=== PATIENT | female | born 1980 | race Caucasian/White ===

== ENCOUNTER → 2022-07-19 10:03 | Outpatient (BNVA) | payer BC, SELFPAY | PROVIDERS: PCP Family Medicine; Visit Provider Family Medicine | DX: E03.9 Hypothyroidism, unspecified (principal) | CPT/HCPCS: 80053; 80061; 84443; 85025 ==

== ENCOUNTER → 2022-08-03 13:20 | Outpatient (BNVA) | payer BC, SELFPAY | PROVIDERS: PCP Family Medicine; Referring Provider Family Medicine; Visit Provider Orthopaedic Surgery | DX: M48.07 Spinal stenosis, lumbosacral region (principal); M47.814 Spondylosis without myelopathy or radiculopathy, thoracic region; M47.816 Spondylosis without myelopathy or radiculopathy, lumbar region; M54.2 Cervicalgia | CPT/HCPCS: 72050; 72110 ==

== ENCOUNTER 2022-09-19 06:00 | Outpatient (RCR) | payer BC, SELFPAY | END 2022-09-26 23:59 | disposition home or self-care (01) | LOC: MPT 06:00 | PROVIDERS: PCP Family Medicine; Visit Provider Anesthesiology Pain Medicine | DX: M54.12 Radiculopathy, cervical region (principal) | CPT/HCPCS: 97161 ==

== ENCOUNTER 2022-09-27 06:00 | Outpatient (RCR) | payer BC, SELFPAY | END 2022-10-27 23:59 | disposition home or self-care (01) | LOC: MPT 06:00 | PROVIDERS: PCP Family Medicine; Visit Provider Anesthesiology Pain Medicine | DX: M54.12 Radiculopathy, cervical region (principal) | CPT/HCPCS: 97110; 97140; G0283 ==

== ENCOUNTER 2022-11-23 10:14 | Emergency (ER) | payer BC, SELFPAY ==
[2022-11-23 10:36] VITALS: BP 75/62; PULSE 81; RESP 16; TEMP 36; O2SAT 97; BMI 33.3
[2022-11-23 10:45] LABS: Glucose Point of Care 81 mg/dL (70-110)
--- NOTE | 2022-11-23 10:50 | ECG_ITS ---
[facility] Test Date: 2022-11-23 Pat Name: Gale Meredith Department: Room: Gender: Female Aco Coordinator: : 1980 Requested By: Ken Valderrama Order Number: [id number] Kevon MD: Micky Dumont M.D. Measurements Intervals [place] Rate: 61 P: 50 MA: 181 QRS: 52 QRSD: 96 T: 56 QT: 408 QTc: 411 Interpretive Statements SINUS RHYTHM No previous ECG available for comparison Electronically Signed On 11-23-2022 16:14:42 CDT by Micky Dumont M.D. [id number]
[2022-11-23 11:02] LABS: Basophils # 0.1 10^3/uL (0.0-0.1); Basophils % 0.4 %; Eosinophils % 0.3 %; Hematocrit 43.4 % (37.0-47.0); Hemoglobin 14.1 g/dL (11.5-15.3); Lymphocytes # 2.1 10^3/uL (0.8-4.8); Lymphocytes % 17.8 %; Mean Corpuscular HGB Conc 32.5 g/dL (30.0-36.0); Mean Corpuscular Hemoglobin 28.1 pg (28.0-34.0); Mean Corpuscular Volume 86.6 fl (81-99); Mean Platelet Volume 10.9 fL (7.4-10.4); Monocytes # 0.7 10^3/uL (0.2-0.9); Monocytes % 6.3 %; Neutrophils # 8.63 10^3/uL (1.8-7.7); Neutrophils % 74.9 %; Nucleated Red Blood Cells % 0 %; Platelet Count 232 10^3/cmm (130-400); Red Blood Count 5.01 10^6/uL (4.1-5.3); Red Cell Distribution Width 12.2 % (12.1-15.1); White Blood Count 11.5 10^3/uL (4.0-10.0)
[2022-11-23] MEDS: promethazine 25 mg/mL SDV 1 mL IM (11:05)
[2022-11-23] MEDS: ketorolac 30 mg/mL INJ IVP ×2 (11:05→13:57)
[2022-11-23] MEDS: sodium chloride 0.9% 1,000 ML 999 ML IV (11:05)
[2022-11-23] MEDS: valproic acid inj 500 MG in sodium chloride 0.9% 50 ML 55 MG IV ×2 (11:12→13:56)
[2022-11-23 11:17] LABS: Alanine Aminotransferase 7 U/L (0-33); Albumin Level 4.3 g/dL (3.5-5.2); Alkaline Phosphatase 44 U/L (35-105); Anion Gap 15.1 (5-19); Aspartate Amino Transferase 9 U/L (0-32); Blood Urea Nitrogen 11 mg/dL (6-20); Calcium 9.3 mg/dL (8.5-10.5); Carbon Dioxide 26 mmol/L (22-29); Chloride 101 mmol/L (98-107); Globulin 2.9 g/dL (1.3-4.6); Glomerular Filtration Rate 68.3 mL/min (90-130); Glucose 80 mg/dL (65-115); Osmolality Calculated 284 mOsm/kg (285-295); Potassium 4.1 mmol/L (3.5-5.1); Sodium 138 mmol/L (136-145); Total Bilirubin 1.5 mg/dL (0.15-1.2); Total Protein 7.2 g/dL (6.6-8.7)
--- NOTE | 2022-11-23 11:34 | ED_ITS ---
HPI - Headache General: Chief Complaint: Headache Stated Complaint: headache, dizziness, ear ringing Time Seen by Provider: 11/23/22 10:45 Source: patient Mode of arrival: wheelchair History of Present Illness: 42-year-old female presents emergency room complaint of headache for the last 4 to 5 days. She is taken some [id number] medications including Nurtec without any relief of symptoms. She is mildly hypotensive initially in triage but improved on her arrival in the room she denies any fever sweats or chills. She has had some falls recently. MD elicited complaint: migraine Onset (ago): day(s) Onset description: gradually Location: frontal Severity: moderate Quality & Timing: throbbing Exacerbating factors: light and noise Relieving factors: rest Associated symptoms: Reports photophobia; Deny chest pain, confusion, cough, diaphoresis, eye pain, eye redness, fever(s), lightheadedness, loss of vision, malaise, nausea, neck stiffness, numbness, paresthesias, pre-syncope, rash, seizures, short of breath, sound sensitivity, syncope, vomiting or weakness Treatments prior to arrival: none Review of Systems Const: Denies: fever(s), chills, fatigue, malaise or diaphoresis ENMT: Denies: throat pain, ear or mastoid pain, nasal discharge or nasal congestion Card: Denies: chest pain, lightheadedness, syncope or pre-syncope Resp: Denies: dyspnea, productive cough or non-productive cough GI: Denies: abdominal pain, nausea or vomiting : Denies: flank pain, difficulty voiding, dysuria, urinary frequency or urinary urgency Skin/Breast: Denies: rash Neuro: Denies: confusion PFSH ED PFSH: Medical History Chronic migraine with aura Hypothyroidism Migraine headache with aura Raynaud's disease Surgical History History of appendectomy 1990 History of back surgery 2008, L5 herniated disc repair Hx of spinal surgery Family History Mother Cancer kidney Anesthesia complication high tolerance Grandfather Cancer Maternal--lung CAD (coronary artery disease) Grandfather No problems noted. Grandmother Cancer Maternal--kidney Father Menieres disease Denies family history of Diabetes Clotting disorder Dementia Hyperlipidemia Psychiatric illness Chronic kidney disease (CKD) Bleeding disorder Lung disease Hypertension Stroke Social History Substance/Drug Use: never Female Reproductive History: Para: 2 Physical Exam Const: GENERAL APPEARANCE: cooperative and comfortable ORIENTATION/CONSCIOUSNESS: Yes awake, Yes oriented to person, Yes oriented to place and Yes oriented to time HENMT: COMMON NORMALS: normocephalic, atraumatic and hearing grossly normal bilaterally HEAD & SCALP: normocephalic and atraumatic Eye: DIRECT OPHTHALMOSCOPY: Yes photophobia Resp: COMMON NORMALS: normal respiratory effort, No retractions, No use of accessory muscles and clear to auscultation bilaterally AUSCULTATION: clear to auscultation bilaterally Cardio: COMMON NORMALS: regular rate, regular rhythm and No murmurs present (Cardio) RATE: regular rate RHYTHM: regular rhythm GI: COMMON NORMALS: Soft to palpation and No hepatosplenomegaly present AUSCULTATION: Yes normoactive bowel sounds PALPATION: Yes Soft to palpation, No Tenderness to palpation present (GI), No Guarding due to palpation present (GI) and Yes No hepatosplenomegaly present Extremity: COMMON NORMALS: normal to inspection, capillary refill normal, no clubbing, cyanosis or edema, no calf tenderness and no pedal edema Neuro: SENSORIUM/ORIENTATION: Yes oriented to person, Yes oriented to place and Yes oriented to time Skin: COMMON NORMALS: no rashes or lesions noted GENERAL SKIN EXAM: no rashes or lesions noted Course Vital Signs: Vital signs: Vital Signs Temperature 96.7 F L 11/23/22 14:56 Pulse Rate 72 11/23/22 14:56 Respiratory Rate 16 11/23/22 14:56 Blood Pressure 100/70 11/23/22 14:56 Pulse Oximetry 94 11/23/22 14:56 Oxygen Delivery Me thod Room Air 11/23/22 14:56 MDM - Headache Medical Decision Making Headache improved slightly with medications Septocaine x2 as well as IV fluids ketorolac and promethazine. Will discharge home continue regular home medication rescue therapies follow-up with primary care. Lab Data 11/23/22 10:50 11/23/22 10:[address] 11/23/22 11:35 IMPRESSION: 1. No evidence of intracranial hemorrhage or mass effect 2. No acute intracranial findings. Laboratory Results WBC 11.5 10^3/uL (4.0-10.0) H 11/23/22 10:50 RBC 5.01 10^6/uL (4.1-5.3) 11/23/22 10:50 Hgb 14.1 g/dL (11.5-15.3) 11/23/22 10:50 Hct 43.4 % (37.0-47.0) 11/23/22 10:50 MCV 86.6 fl (81-99) 11/23/22 10:50 MCH 28.1 pg (28.0-34.0) 11/23/22 10:50 MCHC 32.5 g/dL (30.0-36.0) 11/23/22 10:50 RDW 12.2 % (12.1-15.1) 11/23/22 10:50 Plt Count 232 10^3/cmm (130-400) 11/23/22 10:50 MPV 10.9 fL (7.4-10.4) H 11/23/22 10:50 Neut % (Auto) 74.9 % 11/23/22 10:50 Lymph % (Auto) 17.8 % 11/23/22 10:50 Mills % (Auto) 6.3 % 11/23/22 10:50 Eos % (Auto) 0.3 % 11/23/22 10:50 Baso % (Auto) 0.4 % 11/23/22 10:50 Neut # (Auto) 8.63 10^3/uL (1.8-7.7) H 11/23/22 10:50 Lymph # (Auto) 2.1 10^3/uL (0.8-4.8) 11/23/22 10:50 Mills # (Auto) 0.7 10^3/uL (0.2-0.9) 11/23/22 10:50 Eos # (Auto) 0.0 10^3/uL (0.0-0.8) 11/23/22 10:50 Baso # (Auto) 0.1 10^3/uL (0.0-0.1) 11/23/22 10:50 Nucleated RBC % (auto) 0 % 11/23/22 10:50 Nucleated RBCs # 0.0 /100WBC 11/23/22 10:50 Sodium 138 mmol/L (136-145) 11/23/22 10:50 Potassium 4.1 mmol/L (3.5-5.1) 11/23/22 10:50 Chloride 101 mmol/L (98-107) 11/23/22 10:50 Carbon Dioxide 26 mmol/L (22-29) 11/23/22 10:50 Anion Gap 15.1 (5-19) 11/23/22 10:50 BUN 11 mg/dL (6-20) 11/23/22 10:50 Creatinine 0.9 mg/dL (0.5-0.9) 11/23/22 10:50 GFR Calculation 68.3 mL/min (90-130) L 11/23/22 10:50 Glucose 80 mg/dL (65-115) 11/23/22 10:50 POC Glucose 81 mg/dL (70-110) 11/23/22 10:41 Calculated Osmolality 284 mOsm/kg (285-295) L 11/23/22 10:50 Calcium 9.3 mg/dL (8.5-10.5) 11/23/22 10:50 Total Bilirubin 1.5 mg/dL (0.15-1.2) H 11/23/22 10:50 AST 9 U/L (0-32) 11/23/22 10:50 ALT 7 U/L (0-33) 11/23/22 10:50 Alkaline Phosphatase 44 U/L (35-105) 11/23/22 10:50 Creatine Kinase 31 U/L (26-192) 11/23/22 10:50 Total Protein 7.2 g/dL (6.6-8.7) 11/23/22 10:50 Albumin 4.3 g/dL (3.5-5.2) 11/23/22 10:50 Globulin 2.9 g/dL (1.3-4.6) 11/23/22 10:50 Urine Color Yellow (Yellow) 11/23/22 14:21 Urine Appearance Hazy (CLEAR) A 11/23/22 14:21 Urine pH 5 (5-7) 11/23/22 14:21 Ur Specific [place] 1.020 (1.005-1.030) 11/23/22 14:21 Urine Protein Neg (Negative) 11/23/22 14:21 Urine Glucose (UA) Norm (Normal) 11/23/22 14:21 Urine Ketones 2+ (Negative) H 11/23/22 14:21 Urine Blood Neg (Negative) 11/23/22 14:21 Urine Nitrate Negative (Negative) 11/23/22 14:21 Urine Bilirubin Neg (Negative) 11/23/22 14:21 Urine Urobilinogen Neg mg/dL (Negative) 11/23/22 14:21 Ur Leukocyte Esterase 2+ (Negative) H 11/23/22 14:21 Urine RBC 0-4 /hpf (0-2) H 11/23/22 14:21 Urine WBC 10-15 /hpf (0-5) H 11/23/22 14:21 Ur Squamous Epith Cells 10-15 /hpf (0-5) H 11/23/22 14:21 Amorphous Sediment 2+ /hpf 11/23/22 14:21 Urine Bacteria 2+ /hpf (NONE) H 11/23/22 14:21 Urine Mucus 1+ /hpf 11/23/22 14:21 Discharge Plan Discharge Patient Disposition: Home Clinical Impression: Migraine Condition: Stable Prescriptions: No Action mometasone 0.1 % solution 2 ml topical BID PRN (Reason: Rash) naloxone 4 mg/actuation spray,non-aerosol 1 spray intranasal ONCE PRN (Reason: overdose) Rx Instructions: spray 1 dose into ONE nostril; alternate nostrils w each dose until help arrives sumatriptan succinate 100 mg tablet See Rx Instructions PO .COMPLEX Rx Instructions: take 1 tab at onset of headache; if no relief, may repeat 1 tab after at least 2 hrs; max = 2 tabs/24 hrs PO venlafaxine 150 mg capsule,extended release 24hr 150 mg PO QAM Qty: 30 0RF Nurtec ODT 75 mg tablet,disintegrating 75 mg PO ONCE PRN (Reason: migraine headache) Qty: 14 0RF Mirena 20 mcg/24 hours (8 yrs) 52 mg intrauterine device 1 device intrauterine .CONTINUOUS levothyroxine 75 mcg capsule 75 mcg PO DAILY Qty: 90 2RF tizanidine 4 mg capsule See Rx Instructions .ROUTE .COMPLEX Qty: 90 1RF Dose Instruction: TAKE 1 CAPSULE EVERY 6 HOURS NEEDED FOR MUSCLE SPASTICITY Rx Instructions: TAKE 1 CAPSULE EVERY 6 HOURS NEEDED FOR MUSCLE SPASTICITY gabapentin 800 mg tablet 800 mg PO BID 30 Days Qty: 60 1RF tramadol 50 mg tablet 50 mg PO Q8H PRN (Reason: pain) Qty: 60 0RF Discharge Orders: Discharge ED (Routine); Ordered 11/23/22 Ordered By: Ken Savage Referrals: Suraj Harris MD [Primary Care Provider] - Discharge Diet: Usual diet Discharge Activity: Increase activity as tolerated Patient Instructions: Opioid Safety, Pain Management Activity Restrictions/Additional Instructions: You were seen today for headache given fluids and Depakene. Recommend you continue your current medications regiment. Follow-up with your primary care doctor. Coding Level of Care Code ED Stator Plate Washer for Betina Coronado
--- NOTE | 2022-11-23 11:35 | CT_ITS ---
WS: [id number] CT HEAD TECHNIQUE: Noncontrast CT of the head obtained from the skullbase to the vertex. CLINICAL INFORMATION: Headache frequent falls COMPARISON: None. DLP: 1021.[address] scans at [facility] use at least one of these dose optimization techniques: automated e xposure control; mA and/or kV adjustment per patient size (includes targeted exams where dose is matc hed to clinical indication); or iterative reconstruction. FINDINGS: No evidence of intracranial hemorrhage or mass effect. Ventricular system and basal cisterns are hernandez nt. No extra-axial fluid collections. No evidence of mass or mass effect. Normal pickens-white different iation. Paranasal sinuses and mastoid air cells are well aerated. .Normal visualized soft tissues. CT/CT head wo con* [id number] IMPRESSION: 1. No evidence of intracranial hemorrhage or mass effect 2. No acute intracranial findings.
[2022-11-23 12:03] LABS: Creatine Phosphokinase 31 U/L (26-192)
[2022-11-23 12:25] VITALS: BP 115/74
[2022-11-23 14:56] VITALS: BP 100/70; PULSE 72; RESP 16; TEMP 35.9; O2SAT 94
[2022-11-23 15:01] LABS: Add Urine Culture? No; Add Urine Microscopic? YES; Amorphous Sediment Urine 2+ /hpf; Bacteria Urine 2+ /hpf; Bilirubin Urine Neg (Negative); Blood Urine Neg (Negative); Glucose Urine UA Norm (Normal); Ketones Urine 2+ (Negative); Leukocyte Esterase Urine 2+ (Negative); Mucus Urine 1+ /hpf; Nitrate Urine Negative (Negative); Protein Urine Neg (Negative); RBC Urine 0-4 /hpf (0-2); Urine Appearance Hazy (CLEAR); Urine Color Yellow (Yellow); Urobilinogen Urine Neg (Negative); pH Urine 5 (5-7)
== END 2022-11-23 15:18 | disposition home or self-care (01) ==
PROVIDERS: Emergency Provider Family Medicine; PCP Family Medicine
DX: G43.909 Migraine, unspecified, not intractable, without status migrainosus (principal)
CPT/HCPCS: 36415; 36416; 70450; 80053; 81001; 82550; 82962; 85025; 93005; 96365; 96366; 96372; 96375; 96376; 99285; J1885; J2550; J3490; J7030

== ENCOUNTER → 2023-01-08 07:42 | Outpatient (BNVA) | payer BC, SELFPAY | PROVIDERS: PCP Family Medicine; Visit Provider Psychiatry & Neurology Neurology | DX: G43.109 Migraine with aura, not intractable, without status migrainosus (principal); R11.0 Nausea; R20.0 Anesthesia of skin | CPT/HCPCS: 36415; 82306; 82607; 82746; 83090; 83735; 83921 ==

== ENCOUNTER 2023-01-23 14:57 | Outpatient (CLI) | payer BC, SELFPAY ==
--- NOTE | 2023-01-23 15:15 | MR_ITS ---
WS: [id number] MRA HEAD TECHNIQUE: Axial 3-D TOF images obtained with axial images and axial, sagittal, and coronal 2-D refor matted images. CLINICAL INFORMATION: G43.109 - Migraine with aura, not intractable, without st... COMPARISON: CT head November 23, 2022 FINDINGS: Some images degraded by patient motion. Distal vertebral arteries are patent. Basilar is patent. Normal vascularity to the CYLINDER BATCHER territory bila terally. Both ICAs are patent at the skull base. Normal vascularity to the STEVE and MCA territories bi laterally. No evidence of proximal flow limiting stenosis or aneurysm. Patent anterior communicating artery. Some irregularity involving the 2nd 3rd order RIGHT MCA branches appears to be due to motion artifact. MR/MR angio head [facility] [id number] IMPRESSION: Some images degraded by patient motion Normal intracranial MRA considering motion artifact.
== END 2023-01-23 14:58 | disposition home or self-care (01) ==
PROVIDERS: PCP Family Medicine; Visit Provider Psychiatry & Neurology Neurology
DX: G43.109 Migraine with aura, not intractable, without status migrainosus (principal)
CPT/HCPCS: 36415; 70544; 82306; 82607; 82746; 83090; 83735; 83921

== ENCOUNTER 2023-02-27 10:13 | Emergency (ER) | payer BC, SELFPAY ==
--- NOTE | 2023-02-27 10:28 | XRR_ITS ---
PROCEDURE INFORMATION: Exam: XR Chest Exam date and time: 02/27/2023 10:56 AM Age: 42 years old Clinical indication: Cough and dyspnea and shortness of breath; Additional info: Dyspnea/cough TECHNIQUE: Imaging protocol: Radiologic exam of the chest. Views: 1 view. COMPARISON: CR XR cervical spine 4-5V [id number] 08/03/2022 1:23 PM FINDINGS: Lungs: Unremarkable. No consolidation. Pleural spaces: Unremarkable. No pleural effusion. No pneumothorax. Heart/Mediastinum: Unremarkable. No cardiomegaly. Bones/joints: Unremarkable. XR/XR chest 1V portable [id number] IMPRESSION: No acute findings.
[2023-02-27 10:34] VITALS: BP 138/84; PULSE 82; RESP 20; TEMP 36.8; O2SAT 99; BMI 30.7
[2023-02-27 11:05] VITALS: BP 154/127; PULSE 76; RESP 18; O2SAT 100
[2023-02-27 11:18] LABS: Basophils % 0.5 %; Eosinophils % 0.4 %; Hematocrit 42.2 % (37.0-47.0); Hemoglobin 13.7 g/dL (11.5-15.3); Lymphocytes % 25.9 %; Mean Corpuscular HGB Conc 32.5 g/dL (30.0-36.0); Mean Corpuscular Volume 86.3 fl (81-99); Mean Platelet Volume 10.7 fL (7.4-10.4); Monocytes # 0.4 10^3/uL (0.2-0.9); Monocytes % 4.5 %; Neutrophils # 5.31 10^3/uL (1.8-7.7); Neutrophils % 68.6 %; Nucleated Red Blood Cells % 0 %; Platelet Count 221 10^3/cmm (130-400); Red Blood Count 4.89 10^6/uL (4.1-5.3); Red Cell Distribution Width 12.7 % (12.1-15.1); White Blood Count 7.8 10^3/uL (4.0-10.0)
--- NOTE | 2023-02-27 11:31 | CT_ITS ---
WS: [id number] CT CERVICAL SPINE HISTORY: acute on chronic cervical radiculopathy TECHNIQUE: Contiguous 2.0 mm axial imaging performed through the entire cervical spine. Sagittal and coronal reformats also performed. All CT scans at [facility] use at least one of these dose o ptimization techniques: automated exposure control; mA and/or kV adjustment per patient size (include s targeted exams where dose is matched to clinical indication); or iterative reconstruction. DLP: 162.17 mGy.cm COMPARISON: None available. Mild straightening of the normal cervical lordosis. Mild disc space narrowing at C5-C6. Hypertrophic osteophytes are most significant from C4 through C6. Craniocervical junction is normal. Facet joints are normally aligned. C1 and C2 are normally aligned and the odontoid is intact. C2-C3: Small central disc protrusion. C3-C4: Normal. C4-C5: Mild osteophytic ridging greatest to the LEFT. Mild LEFT foraminal stenosis predominantly due to osteophyte. C5-C6: Mild osteophytic ridging, slightly greater to the LEFT. Osteophyte encroaches upon the LEFT la teral thecal sac with moderate narrowing of the LEFT foramen. C6-C7: Mild annular disc bulging. No stenosis. C7-T1: Normal. Bilateral cervical chain lymph nodes. Largest lymph node along the RIGHT cervical chain is 11 mm. The re is are probably reactive. CT/CT cervical spin wo con* [id number] IMPRESSION: 1. No acute cervical spine fracture. 2. C4-5: Mild LEFT foraminal stenosis due to an osteophyte. 3. C5-6: Moderate LEFT foraminal stenosis due to osteophyte. Osteophytes also contacts the LEFT lateral cervical cord.
--- NOTE | 2023-02-27 11:31 | CT_ITS ---
WS: [id number] CT LUMBAR SPINE, noncontrast. HISTORY: pain with radiculopathy TECHNIQUE: Contiguous 2.0 mm axial imaging are performed. Sagittal and coronal reformats are submitte d and reviewed. All CT scans at [facility] use at least one of these dose optimization techni ques: automated exposure control; mA and/or kV adjustment per patient size (includes targeted exams w here dose is matched to clinical indication); or iterative reconstruction. IV contrast: None DLP: 1273.03 mGy.cm COMPARISON: None available. Normal lumbar alignment. Mild disc space narrowing at L5-S1 with chronic changes along the endplates. No fractures. Facet joints are normally aligned. L1-2: Normal. L2-3: Normal. L3-4: Mild annular disc bulging with mild encroachment upon the ventral thecal sac. Mild facet arthri tis. No high-grade stenosis. L4-5: Moderate annular disc bulging encroaching upon the subarticular recesses and central canal. Mil d central and bilateral subarticular recess stenosis. L5-S1: Diffuse annular disc bulging asymmetric to the RIGHT. Osteophytic ridging and facet disease al so contributing to mild central, moderate bilateral subarticular recess and foraminal stenosis. Sligh tly greater disc and osteophyte contact on the RIGHT L5 and S1 nerve roots. Partial sacralization L5- S1 on the LEFT. IUD in the uterine canal. CT/CT lumbar spine wo con* [id number] IMPRESSION: 1. Moderate degenerative disc disease at L5-S1. No fractures. 2. Mild central stenosis at L5-S1. 3. Moderate bilateral subarticular recess and foraminal stenosis at L5-S1. Asy mmetric disc contacting the RIGHT L5 and S1 nerve roots. 4. Partial sacralization of L5-S1 on the LEFT.
--- NOTE | 2023-02-27 11:31 | CT_ITS ---
WS: [id number] CT THORACIC SPINE HISTORY: h/o back sx with pain TECHNIQUE: Contiguous 2.5 mm axial images are reviewed to thoracic spine. Images are reformatted in s agittal and coronal planes. All CT scans at [facility] use at least one of these dose optimiz ation techniques: automated exposure control; mA and/or kV adjustment per patient size (includes targ eted exams where dose is matched to clinical indication); or iterative reconstruction. DLP: 1273.03 mGy.cm COMPARISON: None available. Slight straightening of the normal thoracic kyphosis. Partially calcified disc at T10-11. Very slight anterior wedging of T12. No fractures are identified. Facet joint arthritis increasing in the midthoracic spine beginning at T7-8. Mild bilateral foraminal stenosis at T10-11 due to osteophytes. No high-grade central or foraminal stenosis. The visualized lungs and paravertebral soft tissues are normal. CT/CT thoracic spin wo con* [id number] IMPRESSION: 1. No acute thoracic spine fracture. 2. Very minimal anterior wedging of T12. 3. Mild bilateral foraminal stenosis at T10-11.
--- NOTE | 2023-02-27 11:36 | W.ED.BACK ---
HPI - Back Pain/Injury General: Chief Complaint: Shortness of Breath/Dyspnea Stated Complaint: sob, pins and needles Time Seen by Provider: 02/27/23 11:02 History of Present Illness: 42-year-old female presents to the emergency department chief complaint of having acute on chronic back pain. Patient reports acute on chronic [id number] from down her arms of the legs is been ongoing for several weeks now she does now endorse having some mid back pain causing some shortness of breath. Patient reports she has had prior back surgery she has been to multiple specialist once they are trying to get her scheduled for an MRI to get insurance to cooperate to get cleared. The patient reports no bowel or bladder issues she does endorse having couple recent falls. Patient reports she has been on several pain medication regimens no avail. The patient presents to the ER for further assessment and management. Associated symptoms: Deny abdominal pain, chills, fatigue, fever(s), nausea or vomiting Review of Systems General: Reports: 10 or more systems reviewed and unremarkable except in HPI and below Const: Denies: fever(s), chills, fatigue or malaise Eyes: Denies: change in vision or blurry vision Card: Denies: chest pain or palpitations Resp: Denies: dyspnea or productive cough GI: Denies: abdominal pain, nausea or vomiting : Denies: flank pain Musc: Reports: neck pain and back pain; Denies: extremity pain or extremity swelling Skin/Breast: Denies: rash or pruritus Neuro: Reports: weakness in extremities and frequent falls; Denies: headache(s) Psych: Denies: anxiety or depression Vish/Lymph: Denies: easy bleeding All/Imm: Denies: urticaria, throat swelling or facial swelling PFSH ED PFSH: Medical History Chronic migraine with aura Hypothyroidism Migraine headache with aura Raynaud's disease Surgical History History of appendectomy 1991 History of back surgery 2008, L5 herniated disc repair Hx of spinal surgery Family History Mother Cancer kidney Anesthesia complication high tolerance Grandfather Cancer Maternal--lung CAD (coronary artery disease) Grandfather No problems noted. 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 Female Reproductive History: Para: 2 Physical Exam Const: COMMON NORMALS: no acute distress, patient oriented x3 and healthy appearing HENMT: COMMON NORMALS: normocephalic and atraumatic HEAD & SCALP: normocephalic and atraumatic Eye: COMMON NORMALS: Equal, round and reactive pupils present and EOMs intact bilaterally PUPIL: Yes Equal, round and reactive pupils present Neck/C-Spine: COMMON NORMALS: full ROM, supple and no JVD Lymph: LYMPHATIC: no lymphadenopathy noted Chest: COMMONS NORMALS: normal inspection of the chest and normal palpation of entire chest wall Resp: COMMON NORMALS: normal respiratory effort, No retractions and clear to auscultation bilaterally EFFORT & INSPECTION: Yes able to speak in complete sentences and Yes symmetric chest movement AUSCULTATION: clear to auscultation bilaterally OTHER: Equal breath sounds appreciate bilaterally with no obvious wheezing, crackles, rales or rhonchi noted. Cardio: COMMON NORMALS: no JVD, regular rate and regular rhythm RATE: regular rate RHYTHM: regular rhythm GI: COMMON NORMALS: Normal to inspection, nondistended, normoactive bowel sounds present, Soft to palpation and non-tender INSPECTION: Yes normal to inspection PALPATION: Yes Soft to palpation : COMMON NORMALS: No no CVA tenderness BLADDER/KIDNEY EXAM: No no CVA tenderness Back/Pelvis: COMMON NORMALS: negative for no CVA tenderness and negative for no thoracic nor lumbar tenderness (Generalized tenderness paravertebral spasm noted to the thoracic spine no o) Extremity: COMMON NORMALS: normal to inspection and full ROM Neuro: COMMON NORMALS: patient oriented x3, CN's II-XII intact bilaterally, moves all extremities and no focal motor deficits Psych: COMMON NORMALS: mental status grossly normal, Normal thought process present, cooperative and normal affect THOUGHT PROCESS: Normal thought process present Skin: COMMON NORMALS: no rashes or lesions noted GENERAL SKIN EXAM: no rashes or lesions noted Course Vital Signs: Vital signs: Vital Signs Temperature 98.2 F 02/27/23 10:34 Pulse Rate 76 02/27/23 15:00 Respiratory Rate 18 02/27/23 15:00 Blood Pressure 121/79 02/27/23 15:00 Pulse Oximetry 100 02/27/23 15:00 Oxygen Delivery Me thod Room Air 02/27/23 14:11 MDM - Back Pain/Injury Medical Decision Making Due to the patient's symptom condition lab work and imaging will be obtained underlying concerns of additional spine injury or issue, we will continue to follow. Patient CT imaging revealing significant spinal stenosis with facet arthritis as well as anterior wedging of T12 and bilateral foraminal stenosis at T10-T11 mildly these findings are mainly with contributing to the patient's current symptoms patient be subcu discharged home with additional steroids and medications advised further follow-up with primary care or her orthopedic back doctor in the next 2 to 3 days which she was advised return the interim if any of her symptoms persist or worse. Labs 02/27/23 11:09 02/27/23 11:09 Radiology Impressions Chest X-Ray 02/27/23 10:28 IMPRESSION: No acute findings. Cervical Spine CT 02/27/23 11:31 IMPRESSION: 1. No acute cervical spine fracture. 2. C4-5: Mild LEFT foraminal stenosis due to an osteophyte. 3. C5-6: Moderate LEFT foraminal stenosis due to osteophyte. Osteophytes also contacts the LEFT lateral cervical cord. Lumbar Spine CT 02/27/23 11:31 IMPRESSION: 1. Moderate degenerative disc disease at L5-S1. No fractures. 2. Mild central stenosis at L5-S1. 3. Moderate bilateral subarticular recess and foraminal stenosis at L5-S1. Asymmetric disc contacting the RIGHT L5 and S1 nerve roots. 4. Partial sacralization of L5-S1 on the LEFT. Thoracic Spine CT 02/27/23 11:31 IMPRESSION: 1. No acute thoracic spine fracture. 2. Very minimal anterior wedging of T12. 3. Mild bilateral foraminal stenosis at T10-11. Laboratory Results WBC 7.8 10^3/uL (4.0-10.0) 02/27/23 11:09 RBC 4.89 10^6/uL (4.1-5.3) 02/27/23 11:09 Hgb 13.7 g/dL (11.5-15.3) 02/27/23 11:09 Hct 42.2 % (37.0-47.0) 02/27/23 11:09 MCV 86.3 fl (81-99) 02/27/23 11:09 MCH 28.0 pg (28.0-34.0) 02/27/23 11:09 MCHC 32.5 g/dL (30.0-36.0) 02/27/23 11:09 RDW 12.7 % (12.1-15.1) 02/27/23 11:09 Plt Count 221 10^3/cmm (130-400) 02/27/23 11:09 MPV 10.7 fL (7.4-10.4) H 02/27/23 11:09 Neut % (Auto) 68.6 % 02/27/23 11:09 Lymph % (Auto) 25.9 % 02/27/23 11:09 [place] % (Auto) 4.5 % 02/27/23 11:09 Eos % (Auto) 0.4 % 02/27/23 11:09 Baso % (Auto) 0.5 % 02/27/23 11:09 Neut # (Auto) 5.31 10^3/uL (1.8-7.7) 02/27/23 11:09 Lymph # (Auto) 2.0 10^3/uL (0.8-4.8) 02/27/23 11:09 [place] # (Auto) 0.4 10^3/uL (0.2-0.9) 02/27/23 11:09 Eos # (Auto) 0.0 10^3/uL (0.0-0.8) 02/27/23 11:09 Baso # (Auto) 0.0 10^3/uL (0.0-0.1) 02/27/23 11:09 Nucleated RBC % (auto) 0 % 02/27/23 11:09 Nucleated RBCs # 0.0 /100WBC 02/27/23 11:09 Sodium 139 mmol/L (136-145) 02/27/23 11:09 Potassium 3.7 mmol/L (3.5-5.1) 02/27/23 11:09 Chloride 107 mmol/L (98-107) 02/27/23 11:09 Carbon Dioxide 22 mmol/L (22-29) 02/27/23 11:09 Anion Gap 13.7 (5-19) 02/27/23 11:09 BUN 8 mg/dL (6-20) 02/27/23 11:09 Creatinine 0.9 mg/dL (0.5-0.9) 02/27/23 11:09 GFR Calculation 68.3 mL/min (90-130) L 02/27/23 11:09 Glucose 104 mg/dL (65-115) 02/27/23 11:09 Calculated Osmolality 287 mOsm/kg (285-295) 02/27/23 11:09 Calcium 9.4 mg/dL (8.5-10.5) 02/27/23 11:09 Total Bilirubin 0.7 mg/dL (0.15-1.2) 02/27/23 11:09 AST 18 U/L (0-32) 02/27/23 11:09 ALT 25 U/L (0-33) 02/27/23 11:09 Alkaline Phosphatase 43 U/L (35-105) 02/27/23 11:09 Total Protein 7.3 g/dL (6.6-8.7) 02/27/23 11:09 Albumin 4.3 g/dL (3.5-5.2) 02/27/23 11:09 Globulin 3.0 g/dL (1.3-4.6) 02/27/23 11:09 Urine Color Yellow (Yellow) 02/27/23 12:14 Urine Appearance Clear (CLEAR) 02/27/23 12:14 Urine pH 6.5 (5-7) 02/27/23 12:14 Ur Specific [place] 1.005 (1.005-1.030) 02/27/23 12:14 Urine Protein Neg (Negative) 02/27/23 12:14 Urine Glucose (UA) Norm (Normal) 02/27/23 12:14 Urine Ketones Negative (Negative) 02/27/23 12:14 Urine Blood Neg (Negative) 02/27/23 12:14 Urine Nitrate Negative (Negative) 02/27/23 12:14 Urine Bilirubin Neg (Negative) 02/27/23 12:14 Urine Urobilinogen Norm mg/dL (Negative) 02/27/23 12:14 Ur Leukocyte Esterase Trace (Negative) H 02/27/23 12:14 Urine RBC 0-4 /hpf (0-2) H 02/27/23 12:14 Urine WBC 5-10 /hpf (0-5) H 02/27/23 12:14 Ur Squamous Epith Cells 0-4 /hpf (0-5) H 02/27/23 12:14 Amorphous Sediment Not Reportable 02/27/23 12:14 Urine Bacteria None /hpf (NONE) 02/27/23 12:14 Discharge Plan Discharge Patient Disposition: Home Clinical Impression: Cervical radiculopathy, Lumbar disc disease with radiculopathy, Chronic back pain Condition: Stable Prescriptions: New prednisone 10 mg tablets,dose pack 10 mg PO DIRECTED Qty: 30 0RF Rx Instructions: see taper instructions a taper to be taken over 10 days starting at 50 mg down to 10 mg lidocaine 5 % adhesive patch,medicated 1 patch topical Q24H Qty: 15 0RF Rx Instructions: leave on most painful area for up to 12 hrs tramadol 50 mg tablet 50 mg PO Q6H PRN (Reason: pain) Qty: 14 0RF No Action mometasone 0.1 % solution 2 ml topical BID PRN (Reason: Rash) naloxone 4 mg/actuation spray,non-aerosol 1 spray intranasal ONCE PRN (Reason: overdose) Rx Instructions: spray 1 dose into ONE nostril; alternate nostrils w each dose until help arrives ondansetron HCl 4 mg tablet 4 mg PO Q8H PRN (Reason: nausea and vomiting) Qty: 30 0RF Mirena 20 mcg/24 hours (8 yrs) 52 mg intrauterine device 1 device intrauterine .CONTINUOUS levothyroxine 75 mcg capsule 75 mcg PO DAILY Qty: 90 2RF gabapentin 800 mg tablet 800 mg PO BID 30 Days Qty: 60 1RF cholecalciferol (vitamin D3) 1,250 mcg (50,000 unit) capsule 50,000 unit PO .weekly Qty: 14 3RF Rx Instructions: Take one tablet weekly Nurtec ODT 75 mg tablet,disintegrating 75 mg PO ONCE PRN (Reason: migraine headache) Qty: 14 0RF tramadol 50 mg tablet 50 mg PO Q8H PRN (Reason: pain) Qty: 60 0RF Topamax 50 mg tablet See Rx Instructions .ROUTE .COMPLEX Rx Instructions: 50 mg orally QAM AND 100mg QPM tizanidine 4 mg capsule 4 mg PO Q6H PRN (Reason: Muscle Spasticity) Discharge Orders: Discharge ED (Routine); Ordered 02/27/23 Ordered By: Kole Araya Referrals: Suraj Harris MD [Primary Care Provider] - 1-3 days Discharge Diet: Regular Discharge Activity: Increase activity as tolerated Patient Instructions: Lumbar Radiculopathy (ED), Cervical Radiculopathy (ED), Lower Back Exercises (ED), Cervical Radiculopathy, Opioid Safety, Pain Management Activity Restrictions/Additional Instructions: Please further follow-up your primary care doctor in 2 to 3 days please take medications as prescribed and please return the interim if any of your symptoms persist or worse. Coding Level of Care Code ED Dermatology Physician for Betina Coronado
[2023-02-27 11:44] LABS: Alanine Aminotransferase 25 U/L (0-33); Albumin Level 4.3 g/dL (3.5-5.2); Alkaline Phosphatase 43 U/L (35-105); Anion Gap 13.7 (5-19); Aspartate Amino Transferase 18 U/L (0-32); Blood Urea Nitrogen 8 mg/dL (6-20); Calcium 9.4 mg/dL (8.5-10.5); Carbon Dioxide 22 mmol/L (22-29); Chloride 107 mmol/L (98-107); Glomerular Filtration Rate 68.3 mL/min (90-130); Glucose 104 mg/dL (65-115); Osmolality Calculated 287 mOsm/kg (285-295); Potassium 3.7 mmol/L (3.5-5.1); Sodium 139 mmol/L (136-145); Total Bilirubin 0.7 mg/dL (0.15-1.2); Total Protein 7.3 g/dL (6.6-8.7)
[2023-02-27] MEDS: methylPREDNISolone sod succ 125 MG in water for injection-sterile 2 ML 24 MG IVP (12:08)
[2023-02-27] MEDS: fentaNYL 50 mcg/mL INJ 2mL IVP (12:09)
[2023-02-27] MEDS: sodium chloride 0.9% 500 ML IV (12:14)
[2023-02-27 12:46] LABS: Add Urine Culture? No; Add Urine Microscopic? YES; Bilirubin Urine Neg (Negative); Blood Urine Neg (Negative); Glucose Urine UA Norm (Normal); Ketones Urine Negative (Negative); Leukocyte Esterase Urine Trace (Negative); Nitrate Urine Negative (Negative); Protein Urine Neg (Negative); RBC Urine 0-4 /hpf (0-2); Specific Gravity, Urine 1.005 (1.005-1.030); Squamous Epithelial Cell Urine 0-4 /hpf (0-5); Urine Appearance Clear (CLEAR); Urine Color Yellow (Yellow); Urobilinogen Urine Norm (Negative); pH Urine 6.5 (5-7)
[2023-02-27 14:11] VITALS: BP 117/81; O2SAT 98
[2023-02-27 15:00] VITALS: BP 121/79; PULSE 76; RESP 18; O2SAT 100
== END 2023-02-27 15:25 | disposition home or self-care (01) ==
PROVIDERS: Family Medicine; Emergency Provider Emergency Medicine; PCP Family Medicine
DX: M54.12 Radiculopathy, cervical region (principal); M51.16 Intervertebral disc disorders with radiculopathy, lumbar region; G89.29 Other chronic pain; Z77.22 Contact with and (suspected) exposure to environmental tobacco smoke (acute) (chronic)
CPT/HCPCS: 36415; 71045; 72125; 72128; 72131; 80053; 81001; 85025; 96374; 96375; 99285; J2930; J3010; J7040

== ENCOUNTER 2023-03-07 15:39 | Outpatient (CLI) | payer BC, SELFPAY ==
--- NOTE | 2023-03-07 16:00 | MR_ITS ---
WS: [id number] MRI LUMBAR SPINE NONCONTRAST HISTORY: stenosis COMPARISON: CT lumbar spine 02/27/2023 TECHNIQUE: Sagittal and axial multisequence imaging is submitted. Normal lumbar alignment. No fractures. Mild annular disc bulging and osteophytic ridging at the T12-L1. Near contact on the ventral cord. Mi ld effacement of the ventral CSF. Disc spaces are otherwise very minimally desiccated most significant at L5-S1. Conus terminates normally at L1-2 disc level. L1-L2: Normal. L2-L3: Normal. L3-L4: Mild annular disc bulge with mild facet joint arthritis. Mild disc encroachment upon the trave rsing L4 nerve roots. No high-grade stenosis. L4-L5: Diffuse annular disc bulging with a shallow left foraminal disc protrusion and annular fissure . Effacement of the ventral CSF. There is disc contacting the traversing L5 nerve roots bilaterally m ild bilateral foraminal stenosis. Very minimal disc contact on the exiting L4 nerve roots also. Mild central and bilateral subarticular recess stenosis. L5-S1: Diffuse annular disc bulging with osteophytic ridging. Moderate size central disc protrusion c ontacts and displaces the S1 nerve roots. Moderate to severe central, bilateral subarticular recess a nd moderate foraminal stenosis. Uterus is incompletely visualized but appears enlarged and heterogeneous suggesting fibroids present. IMPRESSION: 1. Moderate size central disc protrusion at L5-S1 causing deformity and posterior displacement of the S1 nerve roots. Moderate to severe central with bilateral subarticular recess and moderate foraminal stenosis. Stenosis due to combination of disc disease osteophytes and facet arthritis. 2. Mild central and bilateral subarticular recess stenosis at L4-5. Shallow left foraminal disc protr usion. 3. Very mild disc encroachment upon the traversing L4 nerve roots. No high-grade stenosis. 4. Bulky mildly enlarged uterus is incompletely visualized. Uterus can be further evaluated by transv aginal ultrasound imaging.
--- NOTE | 2023-03-07 16:00 | MR_ITS ---
WS: [id number] MRI CERVICAL SPINE NONCONTRAST HISTORY: spinal stenosis COMPARISON: CT cervical spine 02/27/2023 Technique: Multiplanar, multisequence noncontrast imaging of the cervical spine. Straightening of the normal cervical lordosis may be due to spasm or positional. Moderate disc space narrowing and desiccation at C5-6. The remaining levels show mild desiccation. There is a very small amount of reactive marrow edema within the C5 vertebral body. No fractures. Signal within the cervical cord is normal. Visualized posterior fossa is unremarkable. Craniocervical junction, C1 and C2 relationship, odontoid process and soft tissues are normal. C2-C3: Shallow central disc protrusion. No significant stenosis. C3-C4: Mild disc bulging with a very shallow central disc protrusion. No stenosis. C4-C5: Mild annular disc bulging. Moderate-sized disc osteophyte extends into the left foramina causi ng moderate stenosis and deformity of the exiting nerve roots. There is also very slight contact and deformity of the left lateral thecal sac. C5-C6: Diffuse osteophytic ridging with annular disc bulging. Larger disc osteophyte complex in the l eft foramen. There is contact on the ventral thecal sac greatest to the left of midline with moderate to severe left foraminal stenosis. Stenosis due to the disc osteophyte complex. C6-C7: Mild annular disc bulging and osteophytic ridging. Shallow left foraminal osteophyte. Very mil d left foraminal stenosis. C7-T1: Normal. Paraspinal soft tissue are normal. IMPRESSION: 1. Large disc osteophyte complex in the left foramen of C5-6 causing moderate to severe left foramina l stenosis. There is also mild contact on the left lateral thecal sac at this level. 2. Moderate-sized disc osteophyte complex left foramen of C4-5 causing moderate stenosis. 3. Mild left foraminal stenosis at C6-7 due to an osteophyte. 4. Very shallow central disc protrusions at C2-3 and C3-4.
== END 2023-03-07 15:40 | disposition home or self-care (01) ==
PROVIDERS: PCP Family Medicine; Visit Provider Family Medicine
DX: M51.16 Intervertebral disc disorders with radiculopathy, lumbar region (principal); M48.07 Spinal stenosis, lumbosacral region; M51.27 Other intervertebral disc displacement, lumbosacral region; M48.02 Spinal stenosis, cervical region; M54.12 Radiculopathy, cervical region; N85.2 Hypertrophy of uterus; M25.78 Osteophyte, vertebrae; M50.21 Other cervical disc displacement, high cervical region
CPT/HCPCS: 72141; 72148

== ENCOUNTER → 2023-03-15 07:57 | Outpatient (BNVA) | payer BC, SELFPAY | PROVIDERS: PCP Family Medicine; Visit Provider Orthopaedic Surgery | DX: M47.814 Spondylosis without myelopathy or radiculopathy, thoracic region; M47.816 Spondylosis without myelopathy or radiculopathy, lumbar region; M48.07 Spinal stenosis, lumbosacral region | CPT/HCPCS: 72110 ==

== ENCOUNTER 2023-04-10 08:28 | Outpatient (CLI) | payer BC, SELFPAY ==
--- NOTE | 2023-04-10 08:45 | MR_ITS ---
WS: [id number] MRI THORACIC SPINE WITH CONTRAST TECHNIQUE: Sagittal T1, T2 and STIR imaging. Axial T2 imaging. Post gadolinium imaging was obtained. CLINICAL INFORMATION: back pain COMPARISON: CT 02/27/2023 FINDINGS: Mild thoracic curve. Cord signal is normal. No high-grade central canal stenosis. No enhanc ement within the thoracic cord. Moderate facet arthropathy lower thoracic spine. Mild LEFT T9-T10 bony foraminal narrowing. Mild bilateral LEFT greater than RIGHT T10-11 bony foramin al narrowing. Normal caliber thoracic aorta. Adrenal glands are normal. Small central protrusion C5-C6 on the surgical assistant imaging with slight indentation of the cervical cord with mild central canal stenosis. IMPRESSION: 1. Mild thoracic curve. No acute compression fractures. 2. Cord signal is normal. No significant central canal stenosis. No abnormal gadolinium enhancement. 3. Moderate facet arthropathy in the lower thoracic spine. 4. Mild LEFT bony foraminal narrowing T9-T10 and bilateral bony foraminal narrowing T10-[address] than RIGHT. 5. Mild annular bulging T12-L1. 6. Minimal annular bulging T10-11. 7. Small central protrusion C5-C6 on the surgical assistant imaging with slight indentation of the cervical cord with mild central canal stenosis.
[2023-04-10] MEDS: gadobenate dimeglumine 20 mL vial IV (09:30)
== END 2023-04-10 08:29 | disposition home or self-care (01) ==
LOC: RAD 08:30
PROVIDERS: PCP Family Medicine; Visit Provider Orthopaedic Surgery
DX: M51.16 Intervertebral disc disorders with radiculopathy, lumbar region (principal); M51.24 Other intervertebral disc displacement, thoracic region; R20.0 Anesthesia of skin
CPT/HCPCS: 72157; A9577

== ENCOUNTER → 2023-04-12 08:48 | Outpatient (BNVA) | payer BC, SELFPAY | PROVIDERS: PCP Family Medicine; Visit Provider Orthopaedic Surgery | DX: M48.061 Spinal stenosis, lumbar region without neurogenic claudication (principal); R20.0 Anesthesia of skin; Z09 Encounter for follow-up examination after completed treatment for conditions other than malignant neoplasm; M48.062 Spinal stenosis, lumbar region with neurogenic claudication | CPT/HCPCS: 36415; 80053; 81001; 85025; 87086 ==

== ENCOUNTER → 2023-04-20 11:35 | Outpatient (BNVA) | payer BC, SELFPAY | PROVIDERS: PCP Family Medicine; Visit Provider Family Medicine | DX: Z01.818 Encounter for other preprocedural examination (principal) | CPT/HCPCS: 81000 ==

== ENCOUNTER 2023-04-27 09:37 | Day surgery (SDC) | payer BC, SELFPAY ==
[2023-04-26 13:25] VITALS: BMI 31.6
[2023-04-27] VITALS (7 sets, daily range): BP systolic 101–143; BP diastolic 56–89; PULSE 70–91; RESP 16–17; TEMP 36.1–36.6; O2SAT 100; BMI 31.6
--- NOTE | 2023-04-27 | XR_ITS ---
WS: [id number] Lumbar spine, C-arm fluoroscopy views, 04/27/2023 Clinical Data: L5-S1 decompression Comparison: Lumbar spine, 03/15/2023 Findings: Dr. White performed a lumbar decompression Impression: Lumbar decompression.
[2023-04-27] MEDS: sodium chloride 0.9% 1,000 ML 30 ML IV (10:09)
[2023-04-27 10:35] LABS: OR HCG Qualitative Urine Negative (Negative)
--- NOTE | 2023-04-27 10:39 | ANES.PREANE2 ---
Pre-Anesthetic Assessment Height/Weight: Height 1.65 m Weight 86.183 kg Temp Pulse Resp BP Pulse Ox O2 Del Method 97.9 F 86 17 136/82 100 Room Air 04/27/23 09:59 04/27/23 09:59 04/27/23 09:59 04/27/23 09:59 04/27/23 09:59 04/27/23 10:00 Preop Diagnosis: HNP L5-S1, Lumbosacral Radiculopathy Operation Date: 04/27/23 11:30 Proposed Procedures p (Standing on Left)bilateral L5-S1 decompression(Bilateral) - Demarco White, DO Familial anesthetic complications: none Was Beta Lionel taken within 24 hours: N/A Was Clonidine taken within 24 hours: N/A Last intake: Intake Last Liquid Date 04/26/23 Last Liquid Time 20:00 Last Solid Date 04/26/23 Last Solid Time 15:00 Social No alcohol and No tobacco Exam alert, oriented x 3, clear to auscultation bilaterally and regular rate & rhythm Airway Submandibular: within normal limits Cervical ROM: within normal limits Mallampati: Class II Dentition: full Metabolic Morbid Obesity and Thyroid Disease [facility] Lower Back Pain and Osteoarthritis/DJD Neuropsych Headache Anesthetic Plan ASA status: 3 Anesthesia: General Medications/Allergies Home Medications Medication Instructions Recorded Confirmed Last Taken Type mometasone 0.1 % topical solution 2 ml topical BID PRN Rash 07/19/22 04/12/23 Unknown History naloxone 4 mg/actuation nasal spray 1 spray intranasal ONCE PRN 07/19/22 04/26/23 Unknown History overdose levothyroxine 75 mcg capsule 75 mcg PO DAILY #90 caps 10/20/22 04/26/23 04/26/23 Rx levonorgestrel 21 mcg/24 hours (8 1 device intrauterine .CONTINUOUS 11/06/22 04/26/23 Unknown History yrs) 52 mg intrauterine device (Mirena) ondansetron HCl 4 mg tablet 4 mg PO Q8H PRN nausea and 12/01/22 04/26/23 Unknown Rx vomiting #30 tabs cholecalciferol (vitamin D3) 1,250 50,000 unit PO .weekly #14 caps 01/09/23 04/26/23 04/26/23 Rx mcg (50,000 unit) capsule topiramate 50 mg tablet (Topamax) See Rx Instructions .Route .COMPLEX 02/27/23 04/26/23 04/26/23 History gabapentin 800 mg tablet 800 mg PO BID 30 days #60 tabs 03/12/23 04/26/23 04/26/23 Rx rimegepant 75 mg disintegrating 75 mg PO ONCE PRN migraine 04/04/23 04/26/23 04/26/23 Rx tablet (Nurtec ODT) headache #14 tabs cyclobenzaprine 10 mg tablet 10 mg PO TID #90 tabs 04/09/23 04/26/23 04/26/23 Rx tramadol 50 mg tablet 50 mg PO Q8H PRN pain #60 tabs 04/18/23 04/26/23 04/26/23 Rx Allergies Allergy/AdvReac Type Severity Reaction Status Date / Time sulfamethoxazole Allergy ALGY-Rash Verified 04/26/23 13:23 [From Bactrim] trimethoprim [From Bactrim] Allergy ALGY-Rash Verified 04/26/23 13:23 Current Medications Generic Name Dose Route Start Last Admin Trade Name Freq PRN Reason Stop Dose Admin Sodium Chloride 1,000 mls @ 30 mls/hr 04/27/23 09:45 04/27/23 10:09 Sodium Chloride 0.9% IV 04/28/23 09:44 30 mls/hr .Q24H GARETH Administration PFSH Anesthesia Medical History Chronic migraine with aura Hypothyroidism Migraine headache with aura Nausea Raynaud's disease Surgical History History of appendectomy 1991 History of back surgery 2008, L5 herniated disc repair Hx of spinal surgery Family History Mother Cancer kidney Anesthesia complication high tolerance Grandfather Cancer Maternal--lung CAD (coronary artery disease) Grandfather No problems noted. 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
--- NOTE | 2023-04-27 10:49 | W.PM.OPSUD ---
Surgery/Procedure H&P Update DATE OF PROCEDURE: April 27, 2023 DATE H&P PERFORMED: 04/20/23 H&P UPDATE INFORMATION: I have reviewed H&P completed within last 30 days, I have examined patient prior to procedure and No changes to prior documentation PREOP DIAGNOSIS: HNP L5-S1, Lumbosacral Radiculopathy PLANNED PROCEDURE: Operation Date: 04/27/23 11:30 Proposed Procedures p (Standing on Left)bilateral L5-S1 decompression(Bilateral) - Demarco White DO
[2023-04-27] MEDS: ceFAZolin 2,000 MG in sodium chloride 0.9% (plus) 50 ML 100 MG IV (11:32)
[2023-04-27] MEDS: lidocaine-epi 1% 20 mL INJ INJECTION (12:20)
--- NOTE | 2023-04-27 12:43 | P.OP_ITS ---
Operative Report Date of procedure: April 27, 2023 Pre-op diagnosis: Lumbar stenosis with neurogenic claudication Post-op diagnosis: same Procedure done: L5-S1 laminectomy with partial facetectomies and discectomy. Surgeon: Demarco White DO English Horn Player: Alonzo Palacio English Horn Player: The manager surgical, MARLO Mehta was needed for his expertise under the microscope. He was important and necessary throughout the procedure to complete in a safe and timely manner. He assisted with patient positioning prepping and draping tissue retraction suctioning of the operative field protection of the dural sac and tissue closure Estimated blood loss (mL): 15 Procedure: L5-S1 laminectomy with partial facetectomies. Patient is brought to the operative suite. After undergoing anesthesia they are placed in the prone position. All areas of impingement are well padded. Patient is then prepped and draped in the normal sterile fashion. A skin incision is made over the L5/S1 level. This is confirmed under c-arm guidance. A series of dilators are passed and the tubular retractor is docked on the L5 lamina. A bovie is used to clear the soft tissue off the lamina and the L5/S1 facet joint. A high speed dario is then used to perform the laminectomy and take down the medial aspect of the L5/S1 facet joint. A kerrison rongeure was then used to take down the remaining lamina and smooth the edged of the laminectomy up to the point where the ligamentum flavum attaches. Attention was then brought to the medial aspect of the facet joint. The remaining medial aspect of the superior and inferior aspect of the facet joint were taken down with the kerrison from the pedicle of L5 to S1. The facet joint had significant hypertrophy. Attention was then brought to the Ligamentum Flavum. The ligament was taken down from the lamina of L5 to S1 and out medially to the remaining facet joint. The ligament was scarred down The dura was then exposed. The dura was in good repair. The L5 nerve was then traced with a curette out the L5/S1 foramen and found to be adequately decompressed. The S1 nerve was traced with a curette around the S1 pedicle. The lateral recess was opened with a kerrison helping to further decompress the S1 nerve. The tubular retractor was then tilted to the contralateral side. The bovie was used to take down the soft tissue on the spinous process. The high speed dario was used to take down the spinous process and then the contralateral lamina of L5. The kerrison rongeur was used to take down the remaining lamina to the point where the ligamentum flavum attached and the ligamentum flavum was taken down from L5 to S1. The kerrison rongeur was then used to reach across and take down the medial aspect of the contralateral L5/S1 facet joint.The currete was used to trace the contralateral L5 nerve out the L5/S1 foramen to make sure it was decompressed adequatesly and the S1 was traced around the S1 pedicle. The lateral recess was opened further with the kerrison to ensure the S1 is adequately decompressed. Wound is then irrigated copiously with saline and surgiflo is used to stop any bleeding. The tubular retractor is removed and the wound is closed with vicryl and monocryl suture. Glue is then used to protect the wound. A sterile dressing is then placed. Patient was then placed in the supine position and transferred to the PACU in stable condition.
--- NOTE | 2023-04-27 13:30 | ANE.PACU2 ---
Inpatient post-anesthesia follow up: Airway intact: Yes Vital signs: Temperature 97.1 F Pulse Rate 73 Respiratory Rate 16 Blood Pressure 109/58 Pulse Oximetry 100 Oxygen Delivery Me thod Room Air Oxygen Flow Rate 8 Fraction of Inspir ed Oxygen Hydration adequate: Yes Nausea and vomiting: No Pain level: 2 Mental status: Baseline
== END 2023-04-27 14:24 | disposition home or self-care (01) ==
PROVIDERS: Physician Assistant; PCP Family Medicine; Visit Provider Orthopaedic Surgery
PROC: (CPT 63005; principal; 2023-04-27 11:10)
DX: M48.062 Spinal stenosis, lumbar region with neurogenic claudication (principal); E66.01 Morbid (severe) obesity due to excess calories; Z68.31 Body mass index [BMI] 31.0-31.9, adult; E03.9 Hypothyroidism, unspecified
CPT/HCPCS: 63047; 72020; 76000; 81025; 84703; J0690; J1100; J2405; J2704; J2710; J3010; J3490; J7030

== ENCOUNTER → 2023-05-17 10:17 | Outpatient (BNVA) | payer BC, SELFPAY | PROVIDERS: PCP Family Medicine; Visit Provider Physician Assistant | DX: M48.062 Spinal stenosis, lumbar region with neurogenic claudication (principal); M51.37 Other intervertebral disc degeneration, lumbosacral region; M47.815 Spondylosis without myelopathy or radiculopathy, thoracolumbar region | CPT/HCPCS: 72100 ==

== ENCOUNTER → 2023-06-14 10:45 | Outpatient (BNVA) | payer BC, SELFPAY | PROVIDERS: PCP Family Medicine; Visit Provider Physician Assistant | DX: M48.061 Spinal stenosis, lumbar region without neurogenic claudication (principal); M51.36 Other intervertebral disc degeneration, lumbar region | CPT/HCPCS: 72100 ==

== ENCOUNTER → 2023-07-13 11:24 | Outpatient (BNVA) | payer BC, SELFPAY | PROVIDERS: PCP Family Medicine; Visit Provider Family Medicine | DX: R39.9 Unspecified symptoms and signs involving the genitourinary system (principal); E03.9 Hypothyroidism, unspecified | CPT/HCPCS: 80053; 81000; 84439; 84443 ==

== ENCOUNTER → 2023-07-17 10:08 | Outpatient (BNVA) | payer BC, SELFPAY | PROVIDERS: PCP Family Medicine; Visit Provider Emergency Medicine | DX: R39.9 Unspecified symptoms and signs involving the genitourinary system (principal); R31.9 Hematuria, unspecified; N30.01 Acute cystitis with hematuria | CPT/HCPCS: 81000; 87086 ==

== ENCOUNTER → 2024-07-01 11:55 | Outpatient (BNVA) | payer BC, SELFPAY | PROVIDERS: PCP Family Medicine; Visit Provider Family Medicine | DX: E03.9 Hypothyroidism, unspecified (principal) | CPT/HCPCS: 80053; 80061; 84439; 84443; 85025 ==

== ENCOUNTER → 2024-12-30 09:03 | Outpatient (BNVA) | payer BC, SELFPAY | PROVIDERS: PCP Family Medicine; Visit Provider Family Medicine | DX: E03.9 Hypothyroidism, unspecified (principal); E55.9 Vitamin D deficiency, unspecified; G43.109 Migraine with aura, not intractable, without status migrainosus | CPT/HCPCS: 80053; 82306; 82977; 83615; 84439; 84443; 84450; 84460; 85025 ==

== ENCOUNTER 2025-04-07 13:20 | Emergency (ER) | payer BC, SELFPAY ==
[2025-04-07 13:24] VITALS: BP 123/77; PULSE 82; RESP 16; TEMP 36.8; O2SAT 98; BMI 34.1
--- OUTSIDE RECORDS SUMMARY | 2025-04-07 13:25 | XMS_ITS | Clinical Summary ---
Author Organization [facility] Address [address] [place] [id number] Care Team Providers Care Field Ring Assembler Name Role Phone Valentino Alatorre Primary Care Provider [phone] Allergies Active Allergy Reactions Criticality Noted Date Comments Duloxetine Other (See Comments) High 11/20/2013 Excessive sleep Erythromycin Nausea and Vomiting High 11/20/2013 Excessive n/v Sulfamethoxazole-Trimeth oprim Rash Low 09/27/2015 Medications citalopram (CeleXA) 20 mg tabletIndications: Situational mixed anxiety and depressive disorder TAKE 1 TABLET BY MOUTH ONCE DAILY 90 Tablet 1 05/05/20 21 Active gabapentin (NEURONTIN) 800 mg tabletIndications: Neuropathy, cervical Take 1 Tablet (800 mg) by mouth 2 times daily. 180 Tablet 3 07/21/20 21 Active levonorgestreL (MIRENA) 20 mcg/24 hours (7 yrs) 52 mg IUDIndications:Enc ounter for IUD insertion Use as directed.. 1 Device 0 05/08/20 16 026 Active diclofenac sodium (VOLTAREN) 75 mg Tablet, Delayed Release (E.C.) TAKE 1 TABLET TWICE A DAY 180 Tablet 1 12/24/19 22 Active Additional Information Patient not taking.Reported on 05/30/2022 famotidine (PEPCID) 40 mg tablet Take 1 Tablet (40 mg) by mouth 2 times daily. 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 540 Tablet 1 05/16/20 Active naloxone (NARCAN) 4 mg/spray [place], Non-Aerosol EMERGENCY ONLY: 1 spray (4 mg) in one nostril one time. Repeat in alternating nostrils every 2-3 min until responsive or EMS arrives. 2 Each 1 05/24/20 Active SUMAtriptan (Imitrex) 100 mg tabletIndications: Migraine without aura and without status migrainosus, not intractable Take 1 Tablet (100 mg) by mouth see administration instructions. may repeat in 2 hours; max dose 200mg in 24 hours 8 Tablet 2 05/26/20 Active rimegepant (Nurtec ODT) 75 mg Tablet, Rapid DissolveIndication s:Intractable migraine without aura and with status migrainosus Take 1 Tablet (75 mg) by mouth 1 time daily as needed for Other (See Comment) (Headache/Migrain e). 9 Tablet 1 05/30/20 Active topiramate (TOPAMAX) 100 mg tablet Take 1 Tablet (100 mg) by mouth daily. 90 Tablet 1 06/26/20 Active Mometasone (ELOCON) 0.1 % Solution Apply 2 mL to affected area 2 times daily. 120 mL 2 06/30/20 Active tiZANidine (ZANAFLEX) 4 mg TabletIndications: Acute right-sided low back pain without sciatica,Degenerat ion of lumbar intervertebral disc with acute herniation Take 1 Tablet (4 mg) by mouth every 6 hours as needed for Spasm. 90 Tablet 2 06/30/20 Active nortriptyline (PAMELOR) 10 mg capsuleIndications :Degeneration of lumbar intervertebral disc with acute herniation,Migrain e without aura and without status migrainosus, not intractable Take 1 Capsule (10 mg) by mouth daily at bedtime. 30 Capsule 1 06/30/20 Active Active Problems Problem Noted Date Diagnosed Date Severe obesity (BMI 35.0-39.9) with comorbidity 03/30/2022 Numbness of left lower extremity 05/29/2017 Recurrent UTI 03/22/2017 Migraine without aura and wi thout status migrainosus, not intractable 12/07/2015 Right sided sciatica 07/22/2015 Neuropathy, cervical 11/05/2014 Hypothyroid 11/05/2014 Degeneration of lumbar inter vertebral disc with acute herniation Overview (11/25/2020): C4 C5 and L5 . L5 removed Headache(784.0) Immunizations Immunization Administration Dates Next Due Influenza Vaccine Quad Split 3+ Yrs Im 4 Family History Medical History Relation Name Comments Other Father Kingston Jon meneres Cancer Mother Mother Kidney Other Mother Mother fibromyalgia Thyroid Disease Mother Mother Heart Disease Paternal Grandfather Kingston Jon Depression Sister Emanuel Licea Manic and bipo lar Relation Name Status Comments Father Kingston oJn Alive Mother Mother Alive Paternal Grandfather Kingston Licea Social History Tobacco Use Types Packs/Day Years Used Date Smoking Tobacco: Never Passive Smoke Exposure: Never Smokeless Tobacco: Never Tobacco Cessation:Counseling Given: Not Answered Comments:Quit smoking: Never Alcohol Use Standard Drinks/Week Comments No 0 (1 standard drink = 0.6 oz pur e alcohol) Comments No Sex and Gender Information Value Date Recorded Sex Assigned at Not on file Legal Sex 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 Gender Identity Not on file Sexual Orientation Not on file Last Filed Vital Signs Vital Sign Reading Time Taken Comments Blood Pressure 126/78 05/30/2022 11:24 AM CDT Pulse 63 05/30/2022 11:24 AM CDT Temperature 36.7 C (98 F) 05/30/2022 11:24 AM CDT Respiratory Rate 20 05/30/2022 11:24 AM CDT Oxygen Saturation 98% 05/30/2022 11:24 AM CDT Inhaled Oxygen Concentration - - Weight 102.1 kg (225 lb) 05/30/2022 11:24 AM CDT Height 165.1 cm (5' 5 ) 05/30/2022 11:24 AM CDT Body Mass Index 37.44 05/30/2022 11:24 AM CDT Plan of Treatment Health Maintenance Due Date Last Done Comments Pre-Diabetes and Diabetes Screening 1979 DTAP/TDAP/TD VACCINES (1 - Tdap) 1998 HEPATITIS B VACCINES (1 of 3 - 19+ 3-dose series) 1998 HPV VACCINES (1 - 3-dose SCD M series) 2006 BREAST CANCER SCREENING 11/10/2021 11/10/2020 PAP SMEAR 11/11/2023 11/10/2020, 02/23/2016 Preventative Visit- Commercial 07/30/2024 0 03/30/2022, 04/26/2018, 11/12/2015, Additional history exists COLORECTAL SCREENING 2024 Colorectal Cancer Screening 2024 FIT-DNA Q 3 years 2024 FIT/FOBT Q 1 year 2024 Flex Sig/CT Colonography Q 5 years 2024 INFLUENZA VACCINE (#1) 2025 , 09/20/2020, 04/26/2018, Additional history exists CERVICAL CANCER SCREENING 11/10/2025 HPV/Cotest (21-29) 11/10/2025 11/10/2020, 02/23/2016 HPV/Cotest (30-65) 11/10/2025 11/10/2020, 02/23/2016 Procedures Procedure Name Priority Date/Time Associated Diagnosis Comments CERV/VAG CYTO SCREEN PAP W/HPV Routine 11/10/2020 12:42 PM CDT MAMMO 3D ELDON SCREEN BILAT W OR WO CAD Routine 11/10/2020 9:57 AM CDT Encounter for screening mammogram for malignant neoplasm of breast from Last 3 Months or Most Recently Relevant to Health Maintenance Results * CERV/VAG CYTO SCREEN PAP W/HPV (11/10/2020 12:42 PM CDT) CLINICAL INFORMATION Information not provided 11/16/2020 4:15 PM CDT [facility] LAST MENSTRUAL PERIOD INFORMATION NOT PROVIDED 11/16/2020 4:15 PM CDT [facility] PREV PAP: INFORMATION NOT PROVIDED 11/16/2020 4:15 PM CDT [facility] PREV BX: INFORMATION NOT PROVIDED 11/16/2020 4:15 PM CDT [facility] SOURCE Endocervix 11/16/2020 4:15 PM CDT [facility] ADEQUACY: SEE COMMENT 11/16/2020 4:15 PM CDT [facility] Comment: Satisfactory for evaluation. Endocervical/transformation zone component present. Age and/or menstrual status not provided PAP INTERP Negative for intraepithelial lesion or malignancy. 11/16/2020 4:15 PM CDT [facility] COMMENT This Pap test has been evaluated with computer assisted technology. 11/16/2020 4:15 PM CDT [facility] CROTCH PIECE BASTER: SEE COMMENT 2020 4:15 PM CDT [facility] Comment: MXL, CT(ASCP) CT screening location: [place] [address] [place] [address] EXPLANATORY NOTE SEE COMMENT 021 4:15 PM CDT [facility] Comment: EXPLANATORY NOTE: The Pap is a screening test for cervical cancer. It is not a diagnostic test and is subject to false negative and false positive results. It is most reliable when a satisfactory sample, regularly obtained, is submitted with relevant clinical findings and history, and when the Pap result is evaluated along with historic and current clinical information. HPV E6/E7 Not Detected Not Detected 11/16/2020 4:15 PM CDT [facility] Comment: Methodology: Colliery Clerk-Mediated Amplification This assay detects E6/E7 viral messenger RNA (mRNA) from 14 high-risk HPV types (16,18,31,33,35,39,45,51,52,56,58,59,66,68). The analytical performance characteristics of this assay have been determined by [facility]. The modifications have not been cleared or approved by the FDA. This assay has been validated pursuant to the CLIA regulations and is used for clinical purposes. For additional information, please refer to http://education.[employer]/faq/DUX640l2 (This link if provided for information/ educational purposes only.) Genital SWAB OF ENDOCERVIX / Unknown Collection / Unknown 11/10/2020 12:42 PM CDT 11/12/2020 11:58 AM CDT Narrative [facility] - 11/16/2020 4:15 PM CDT Performing Organization Information: Site ID: [id number] [facility] Address: [address] [place] [address] Director: Kingston Luna D.O., MPH Site ID: [id number] [facility] Address: [address] [place] [address] Director: Estefany Matta Lakesha Ambrosio DO PATHOLOGY/CYTOLOGY ORDERABL ES Final Result [facility] * MAMMO SCRN BILAT 3D ELDON W OR WO CAD (11/10/2020 9:57 AM CDT) Anatomical Region Laterality Modality Breast Bilateral Other Narrative 11/11/2020 2:09 PM CDT Bilateral Digital Mammogram with CAD and 3D Tomography Reason for Exam: Screening Comparison: No prior exam(s) for comparison. Technique: 3D MLO and CC digital tomosynthesis images were acquired and synthesized 2D images (C view) were generated. This digital mammogram was also analyzed by the Computer Aided Detection System CAD). Breast Composition: There are scattered areas of fibroglandular density. There are no suspicious masses, areas of architectural distortions, or microcalcifications to suggest malignancy. Asymmetric breast tissue is noted. Procedure Note Wayne Verde MD - 01/03/2021 Bilateral Digital Mammogram with CAD and 3D Tomography Reason for Exam: Screening Comparison: No prior exam(s) for comparison. Technique: 3D MLO and CC digital tomosynthesis images were acquired and synthesized 2D images (C view) were generated. This digital mammogram was also analyzed by the Computer Aided Detection System CAD). Breast Composition: There are scattered areas of fibroglandulardensity. There are no suspicious masses, areas of architectural distortions, or microcalcifications to suggest malignancy. Asymmetric breast tissue is noted. Valentino Alatorre DO MAMMO ORDERABLES Final Result from Last 3 Months or Most Recently Relevant to Health Maintenance Insurance [employer] BLUE ACCESS/TRUE BLUE PPO Care Teams Field Ring Assembler Relationship Specialty Start Date End Date Valentino Alatorre DO [address] [place] [address] PCP - General 10/27/20
--- OUTSIDE RECORDS SUMMARY | 2025-04-07 13:25 | XMS_ITS | Patient Health Record ---
Author Organization [facility] Address [address] [place] [address] Care Team Providers Care Filling Station Laborer Name Role Phone Suraj Harris MD Primary Care Provider Unavailab karissa FlorafahadbhumiChiSharmila Gifford Unavailable Migration, Provider Unavailable Unavailable Allergies Allergen (clinical drug ingredient) Drug/Non Drug Allergy documented on EMR Reaction Allergy Type Onset Date Status sulfamethoxazole / trimethoprim Bactrim DS Unknown Drug Allergy Active Results Component Value Reference Range Flag Notes Urine Drug Screen (cup read) - [id number] Reviewed date:01/06/2025 09:08:09 AM Interpretation: Performing Lab: Notes/Report: AMP - SYEDA - BUP - BZO - MDMA - OPI - PCP - OXY - MTD - MAMP - Urine Drug Screen (cup read) - [id number] Reviewed date:11/04/2024 09:55:07 AM Interpretation:Positive Performing Lab: Notes/Report: Positive OPI + zzzUrine Drug Screen (confir mation by instrument) - [id number] Reviewed date:09/02/2024 12:48:07 PM Interpretation: Performing Lab: Notes/Report: Urine Confirmation Panel (in strument) - [id number] Reviewed date:01/13/2025 12:36:54 PM Interpretation: Performing Lab: Notes/Report: 6-Acetylmorphine 0 <6 ng/mL N This veda t was developed and its performance characteristics determined by [facility]. It has not been cleared or approved by the U.S. Food and Drug Administration. 7-Aminoclonazepam 0 <60 ng/mL N This te st was developed and its performance characteristics determined by [facility]. It has not been cleared or approved by the U.S. Food and Drug Administration. Alprazolam 0 <60 ng/mL N This test was developed and its performance characteristics determined by [facility]. It has not been cleared or approved by the U.S. Food and Drug Administration. Amphetamine 0 <75 ng/mL N This test was developed and its performance characteristics determined by [facility]. It has not been cleared or approved by the U.S. Food and Drug Administration. aOH-Alprazolam 0 <60 ng/mL N This test was developed and its performance characteristics determined by [facility]. It has not been cleared or approved by the U.S. Food and Drug Administration. Buprenorphine 0.0 <7.5 ng/mL N This test w as developed and its performance characteristics determined by [facility]. It has not been cleared or approved by the U.S. Food and Drug Administration. Norbuprenorphine 0.0 <37.5 ng/mL N This te st was developed and its performance characteristics determined by [facility]. It has not been cleared or approved by the U.S. Food and Drug Administration. Carisoprodol 0 <75 ng/mL N This test wa s developed and its performance characteristics determined by [facility]. It has not been cleared or approved by the U.S. Food and Drug Administration. Codeine 0 <75 ng/mL N This test was developed and its performance characteristics determined by [facility]. It has not been cleared or approved by the U.S. Food and Drug Administration. EDDP 3 <75 ng/mL N This test was developed and its performance characteristics determined by [facility]. It has not been cleared or approved by the U.S. Food and Drug Administration. Fentanyl 0 <6 ng/mL N This test was developed and its performance characteristics determined by [facility]. It has not been cleared or approved by the U.S. Food and Drug Administration. Hydrocodone 168 <75 ng/mL H This test was developed and its performance characteristics determined by [facility]. It has not been cleared or approved by the U.S. Food and Drug Administration. Hydromorphone 19 <75 ng/mL N This test w as developed and its performance characteristics determined by [facility]. It has not been cleared or approved by the U.S. Food and Drug Administration. Lorazepam 0 <60 ng/mL N This test was developed and its performance characteristics determined by [facility]. It has not been cleared or approved by the U.S. Food and Drug Administration. MDMA 0 <75 ng/mL N This test was developed and its performance characteristics determined by [facility]. It has not been cleared or approved by the U.S. Food and Drug Administration. Meperidine 0.0 <37.5 ng/mL N This test was developed and its performance characteristics determined by [facility]. It has not been cleared or approved by the U.S. Food and Drug Administration. Meprobamate 0 <75 ng/mL N This test was developed and its performance characteristics determined by [facility]. It has not been cleared or approved by the U.S. Food and Drug Administration. Methamphetamine 0 <75 ng/mL N This test was developed and its performance characteristics determined by [facility]. It has not been cleared or approved by the U.S. Food and Drug Administration. Methadone 0 <75 ng/mL N This test was developed and its performance characteristics determined by [facility]. It has not been cleared or approved by the U.S. Food and Drug Administration. Morphine 0 <75 ng/mL N This test was developed and its performance characteristics determined by [facility]. It has not been cleared or approved by the U.S. Food and Drug Administration. Nordiazepam 0 <60 ng/mL N This test was developed and its performance characteristics determined by [facility]. It has not been cleared or approved by the U.S. Food and Drug Administration. Norfentanyl 0 <6 ng/mL N This test was developed and its performance characteristics determined by [facility]. It has not been cleared or approved by the U.S. Food and Drug Administration. Normeperidine 0.0 <37.5 ng/mL N This test was developed and its performance characteristics determined by [facility]. It has not been cleared or approved by the U.S. Food and Drug Administration. O-desmethyltramadol 0 <75 ng/mL N This test was developed and its performance characteristics determined by [facility]. It has not been cleared or approved by the U.S. Food and Drug Administration. Oxazepam 0 <60 ng/mL N This test was developed and its performance characteristics determined by [facility]. It has not been cleared or approved by the U.S. Food and Drug Administration. Oxycodone 0.0 <37.5 ng/mL N This test was developed and its performance characteristics determined by [facility]. It has not been cleared or approved by the U.S. Food and Drug Administration. Oxymorphone 0 <75 ng/mL N This test was developed and its performance characteristics determined by [facility]. It has not been cleared or approved by the U.S. Food and Drug Administration. Phencyclidine 0.0 <7.5 ng/mL N This test w as developed and its performance characteristics determined by [facility]. It has not been cleared or approved by the U.S. Food and Drug Administration. Tapentadol 0.0 <37.5 ng/mL N This test was developed and its performance characteristics determined by [facility]. It has not been cleared or approved by the U.S. Food and Drug Administration. Temazepam 0 <60 ng/mL N This test was developed and its performance characteristics determined by [facility]. It has not been cleared or approved by the U.S. Food and Drug Administration. Tramadol 5 <75 ng/mL N This test was developed and its performance characteristics determined by [facility]. It has not been cleared or approved by the U.S. Food and Drug Administration. Norhydrocodone >5000 <75 ng/mL > This test was developed and its performance characteristics determined by [facility]. It has not been cleared or approved by the U.S. Food and Drug Administration. Noroxycodone 0 <38 ng/mL N This test wa s developed and its performance characteristics determined by [facility]. It has not been cleared or approved by the U.S. Food and Drug Administration. Pregabalin 0 <225 ng/mL N This test was developed and its performance characteristics determined by [facility]. It has not been cleared or approved by the U.S. Food and Drug Administration. Gabapentin >83128 <225 ng/mL > This test was developed and its performance characteristics determined by [facility]. It has not been cleared or approved by the U.S. Food and Drug Administration. Benzoylecgonine 0.0 <37.5 ng/mL N This veda t was developed and its performance characteristics determined by [facility]. It has not been cleared or approved by the U.S. Food and Drug Administration. 4-Hydroxy Xylazine 0 <25 ng/mL N This t est was developed and its performance characteristics determined by [facility]. It has not been cleared or approved by the U.S. Food and Drug Administration. Urine Confirmation Panel (in strument) - [id number] Reviewed date:11/17/2024 01:25:19 PM Interpretation: Performing Lab: Notes/Report: 6-Acetylmorphine 0 <6 ng/mL N This veda t was developed and its performance characteristics determined by [facility]. It has not been cleared or approved by the U.S. Food and Drug Administration. 7-Aminoclonazepam 0 <60 ng/mL N This te st was developed and its performance characteristics determined by [facility]. It has not been cleared or approved by the U.S. Food and Drug Administration. Alprazolam 0 <60 ng/mL N This test was developed and its performance characteristics determined by [facility]. It has not been cleared or approved by the U.S. Food and Drug Administration. Amphetamine 0 <75 ng/mL N This test was developed and its performance characteristics determined by [facility]. It has not been cleared or approved by the U.S. Food and Drug Administration. aOH-Alprazolam 0 <60 ng/mL N This test was developed and its performance characteristics determined by [facility]. It has not been cleared or approved by the U.S. Food and Drug Administration. Buprenorphine 0.0 <7.5 ng/mL N This test w as developed and its performance characteristics determined by [facility]. It has not been cleared or approved by the U.S. Food and Drug Administration. Norbuprenorphine 0.0 <37.5 ng/mL N This te st was developed and its performance characteristics determined by [facility]. It has not been cleared or approved by the U.S. Food and Drug Administration. Carisoprodol 0 <75 ng/mL N This test wa s developed and its performance characteristics determined by [facility]. It has not been cleared or approved by the U.S. Food and Drug Administration. Codeine 0 <75 ng/mL N This test was developed and its performance characteristics determined by [facility]. It has not been cleared or approved by the U.S. Food and Drug Administration. EDDP 0 <75 ng/mL N This test was developed and its performance characteristics determined by [facility]. It has not been cleared or approved by the U.S. Food and Drug Administration. Fentanyl 0 <6 ng/mL N This test was developed and its performance characteristics determined by [facility]. It has not been cleared or approved by the U.S. Food and Drug Administration. Hydrocodone 50 <75 ng/mL N This test was developed and its performance characteristics determined by [facility]. It has not been cleared or approved by the U.S. Food and Drug Administration. Hydromorphone 56 <75 ng/mL N This test w as developed and its performance characteristics determined by [facility]. It has not been cleared or approved by the U.S. Food and Drug Administration. Lorazepam 0 <60 ng/mL N This test was developed and its performance characteristics determined by [facility]. It has not been cleared or approved by the U.S. Food and Drug Administration. MDMA 0 <75 ng/mL N This test was developed and its performance characteristics determined by [facility]. It has not been cleared or approved by the U.S. Food and Drug Administration. Meperidine 0.0 <37.5 ng/mL N This test was developed and its performance characteristics determined by [facility]. It has not been cleared or approved by the U.S. Food and Drug Administration. Meprobamate 0 <75 ng/mL N This test was developed and its performance characteristics determined by [facility]. It has not been cleared or approved by the U.S. Food and Drug Administration. Methamphetamine 0 <75 ng/mL N This test was developed and its performance characteristics determined by [facility]. It has not been cleared or approved by the U.S. Food and Drug Administration. Methadone 0 <75 ng/mL N This test was developed and its performance characteristics determined by [facility]. It has not been cleared or approved by the U.S. Food and Drug Administration. Morphine 0 <75 ng/mL N This test was developed and its performance characteristics determined by [facility]. It has not been cleared or approved by the U.S. Food and Drug Administration. Nordiazepam 0 <60 ng/mL N This test was developed and its performance characteristics determined by [facility]. It has not been cleared or approved by the U.S. Food and Drug Administration. Norfentanyl 0 <6 ng/mL N This test was developed and its performance characteristics determined by [facility]. It has not been cleared or approved by the U.S. Food and Drug Administration. Normeperidine 0.0 <37.5 ng/mL N This test was developed and its performance characteristics determined by [facility]. It has not been cleared or approved by the U.S. Food and Drug Administration. O-desmethyltramadol 0 <75 ng/mL N This test was developed and its performance characteristics determined by [facility]. It has not been cleared or approved by the U.S. Food and Drug Administration. Oxazepam 0 <60 ng/mL N This test was developed and its performance characteristics determined by [facility]. It has not been cleared or approved by the U.S. Food and Drug Administration. Oxycodone 5.7 <37.5 ng/mL N This test was developed and its performance characteristics determined by [facility]. It has not been cleared or approved by the U.S. Food and Drug Administration. Oxymorphone 0 <75 ng/mL N This test was developed and its performance characteristics determined by [facility]. It has not been cleared or approved by the U.S. Food and Drug Administration. Phencyclidine 0.0 <7.5 ng/mL N This test w as developed and its performance characteristics determined by [facility]. It has not been cleared or approved by the U.S. Food and Drug Administration. Tapentadol 7.9 <37.5 ng/mL N This test was developed and its performance characteristics determined by [facility]. It has not been cleared or approved by the U.S. Food and Drug Administration. Temazepam 8 <60 ng/mL N This test was developed and its performance characteristics determined by [facility]. It has not been cleared or approved by the U.S. Food and Drug Administration. Tramadol 0 <75 ng/mL N This test was developed and its performance characteristics determined by [facility]. It has not been cleared or approved by the U.S. Food and Drug Administration. Norhydrocodone 37 <75 ng/mL N This test was developed and its performance characteristics determined by [facility]. It has not been cleared or approved by the U.S. Food and Drug Administration. Noroxycodone 0 <38 ng/mL N This test wa s developed and its performance characteristics determined by [facility]. It has not been cleared or approved by the U.S. Food and Drug Administration. Pregabalin 0 <225 ng/mL N This test was developed and its performance characteristics determined by [facility]. It has not been cleared or approved by the U.S. Food and Drug Administration. Gabapentin >10373 <225 ng/mL > This test was developed and its performance characteristics determined by [facility]. It has not been cleared or approved by the U.S. Food and Drug Administration. Benzoylecgonine 0.0 <37.5 ng/mL N This veda t was developed and its performance characteristics determined by [facility]. It has not been cleared or approved by the U.S. Food and Drug Administration. 4-Hydroxy Xylazine 0 <25 ng/mL N This t est was developed and its performance characteristics determined by [facility]. It has not been cleared or approved by the U.S. Food and Drug Administration. Tox Results Reviewed date:01/13/2025 12:17:43 PM Interpretation: Performing Lab: Notes/Report: Tox Results Reviewed date:11/17/2024 10:15:11 PM Interpretation: Performing Lab: Notes/Report: Reason For Referral No Information Medications Medication SIG (Take, Route, Frequency, Duration) Notes Start Date End Date Status Topiramate Active tiZANidine HCl 4 MG Tablet 1 Tablet Orally 3 times a day As needed Active hydrOXYzine HCl 25 MG Tablet 1 tablet as needed Orally twice a day As needed Active Zofran Active Vitamin D3 Active HYDROcodone-Acetaminop hen 5-325 MG Tablet 1 tablet as needed Orally every 4-6 hrs; Duration: 30 days As needed not to exceed 2 per day fill 06/06/25 may fill 1-2 days early if closed 03/24/2025 07/06/2025 Active HYDROcodone-Acetaminop hen 5-325 MG Tablet 1 tablet as needed Orally every 4-6 hours not to exceed 2 per day Active Gabapentin Active Levothyroxine Sodium Active HYDROcodone-Acetaminop hen 5-325 MG Tablet 1 tablet as needed Orally every 4-6 hrs; Duration: 30 days As needed not to exceed 2 per day fill 05/07/25 03/24/2025 06/06/2025 Active HYDROcodone-Acetaminop hen 5-325 MG Tablet 1 tablet as needed Orally every 4-6 hrs; Duration: 30 days As needed not to exceed 2 per day fill 04/07/25 03/24/2025 05/07/2025 Active Nurtec Active Social History Section Notes: denies alcohol non smoker denies illicit drugs denies rehab/detox currently working not on disability denies alcohol non smoker denies illicit drugs denies rehab/detox currently working not on disability denies alcohol non smoker denies illicit drugs denies rehab/detox currently working not on disability denies alcohol non smoker denies illicit drugs denies rehab/detox currently working not on disability Problems Problem Type SNOMED Code ICD Code Onset Dates Problem Status W/U Status Risk Notes Problem Chronic pain syndrome (038178045) Chronic pain syndrome (G89.4) Active confirmed Problem Cervical radiculopathy (36908799) Radiculopathy, cervical region (M54.12) Active confirmed Problem High risk drug 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 (764384648) 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) Active confirmed Problem Muscle pain (02723226) Myalgia, other site (M79.18) Active confirmed Problem Carpal tunnel syndrome of right wrist (221297022558858) Carpal tunnel syndrome of right wrist (G56.01) Active confirmed Problem Paresthesia (67463742) Paresthesia (R20.2) Active confirmed Vital Signs Height-cm 165.1 cm 03/24/2025 Weight-kg 92.99 kg 03/24/2025 Height 65 in 03/24/2025 Weight 205 lbs 03/24/2025 BMI 34.11 kg/m2 03/24/2025 Encounters Encounter Location Date Provider Diagnosis [facility] [address] [place] [address] 05/06/2024 Sharmila Anderson [facility] [address] [place] [address] 05/27/2024 Sharmila Anderson [facility] [address] [place] [address], [place] [address] 06/12/2024 Sharmila Anderson Carpal tunnel syndrome of right wrist G56.01 [facility] [address] [place] [address] 06/17/2024 Sharmila Lyuksyutova-Gifford Chronic pain syndrome G89.4 ; Radiculopathy, cervical region M54.12 ; Myalgia, other site M79.18 ; Paresthesia R20.2 and 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 Z79.891 [facility] [address] [place] [address] 08/26/2024 Sharmila Hinesanthony-Gifford Chronic pain syndrome G89.4 ; Radiculopathy, cervical region M54.12 ; Myalgia, other site M79.18 ; Paresthesia R20.2 and custodial (current) use of opiate analgesic Z79.891 [facility] [address] [place] [phone] 11/04/2024 Sharmila Whatleyaleshaanthony-Gifford Chronic pain syndrome G89.4 ; Radiculopathy, cervical region M54.12 ; Myalgia, other site M79.18 ; Paresthesia R20.2 and 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 Z79.891 [facility] [address] [place] [phone] 01/06/2025 Sharmila Hinesfahadbhumi-Gifford Chronic pain syndrome G89.4 ; Radiculopathy, cervical region M54.12 ; Myalgia, other site M79.18 ; Paresthesia R20.2 and custodial (current) use of opiate analgesic Z79.891 [facility] [address] [place] [phone] 03/24/2025 Sharmila Owusu-Gifford Chronic pain syndrome G89.4 ; Radiculopathy, cervical region M54.12 ; Myalgia, other site M79.18 ; Paresthesia R20.2 and 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 Meredith is a pleasant patient with history and physical exam initially thought to be due to cervical radiculpathy status post minimal improvement after cervical epidural steroid injections. I evaluated her for neurogenic thoracic outlet syndrome. She does not meet diagnostic criteria for this. She is doing well on her current regimen and will continue to do so as it provides her functional relief. The options for treatment were explained in detail, this included PT, medications, injections, lifestyle modifications and exercise. The patient presents to clinic for medication evaluation and management. The patient is stable on their current medication regimen and endorses adequate analgesia, increased ADLs, denies abuse and side effects. The AIRCRAFT AVION[employer] TECHNICIAN was reviewed with no untoward events noted. UDS reviewed and is as expected. A bowel regimen was discussed with the patient. 06/17/2024 Radiculopathy, cervical region (ICD-10 - M54.12) 06/12/2024 Carpal tunnel syndrome of right wrist (ICD-10 - G56.01) 08/26/2024 Chronic pain syndrome (ICD-10 - G89.4) Ms. Meredith is a pleasant patient with history and physical exam initially thought to be of cervical radiculoapthy status post minimal improvement after mulitple cervical epidural steroid injections. She's been evaluated for neurogenic thoracic outlet syndrome and does not meet diagnostic criteria for this. Currently, we are managing her with medications, and she's doing well on her current medication regimen. We will continue to do this. The options for treatment were explained in detail, this included PT, medications, injections, lifestyle modifications and exercise. The patient presents to clinic for medication evaluation and management. The patient is stable on their current medication regimen and endorses adequate analgesia, increased ADLs, denies abuse and side effects. The AIRCRAFT AVIONICS TECHNICIAN was reviewed with no untoward events noted. UDS reviewed and is as expected. A bowel regimen was discussed with the patient. 08/26/2024 Radiculopathy, cervical region (ICD-10 - M54.12) 11/04/2024 Chronic pain syndrome (ICD-10 - G89.4) Ms. Meredith is a pleasant patient with history and physical exam initially thought to be of cervical radiculopathy status post minimal improvement after multiple cervical epidural steroid injections. In the past, we considered neurogenic thoracic outlet syndrome. She is currently wanting to stay on a regimen of medications in order to help her activities of daily living, quality of life, and ability to work. The options for treatment were explained in detail, this included PT, medications, injections, lifestyle modifications and exercise. The patient presents to clinic for medication evaluation and management. The patient is stable on their current medication regimen and endorses adequate analgesia, increased ADLs, denies abuse and side effects. The AIRCRAFT AVIONICS TECHNICIAN was reviewed with no untoward events noted. UDS reviewed and is as expected. A bowel regimen was discussed with the patient. Follow up in 2 months. 01/06/2025 Chronic pain syndrome (ICD-10 - G89.4) Ms. Meredith is a very pleasant patient with history and physical exam initially thought to be of cervical radiculopathy status post minimal improvement after multiple cervical epidural steroid injections. In the past, we have considered neurogenic thoracic outlet syndrome. She's doing remarkably well on her current medication regimen and would like to continue this. The options for treatment were explained in detail, this included PT, medications, injections, lifestyle modifications and exercise. The patient presents to clinic for medication evaluation and management. The patient is stable on their current medication regimen and endorses adequate analgesia, increased ADLs, denies abuse and side effects. A bowel regimen was discussed with the patient. Last UDS confirmation consistent with prescribed medications. PDMP reviewed with no untoward events. I'll see her back in 4 months. 03/24/2025 Chronic pain syndrome (ICD-10 - G89.4) Ms. Meredith is a very pleasant patient with a history and physical exam initially thought to be cervical radiculopathy origin status post minimal improvement after multiple cervical ESIs. In the past, we had considered neurogenic thoracic outlet syndrome. She is doing well on her current medication regimen of Narco 5 mg up to two tablets per day. She has no issues with it. The options for treatment were explained in detail, this included PT, medications, injections, lifestyle modifications and exercise. The patient presents to clinic for medication evaluation and management. The patient is stable on their current medication regimen and endorses adequate analgesia, increased ADLs, denies abuse and side effects. The AIRCRAFT AVIONICS TECHNICIAN was reviewed with no untoward events noted. UDS reviewed and is as expected. A bowel regimen was discussed with the patient. Last UDS confirmation on 01/06/25 was consistent with prescribed medications at that time. PDMP reviewed with no untoward events. We will see her back in 3 months. 03/24/2025 Radiculopathy, cervical region (ICD-10 - M54.12) 06/17/2024 Myalgia, other site (ICD-10 - M79.18) 01/06/2025 Radiculopathy, cervical region (ICD-10 - M54.12) 11/04/2024 Radiculopathy, cervical region (ICD-10 - M54.12) 08/26/2024 Myalgia, other site (ICD-10 - M79.18) 08/26/2024 Paresthesia (ICD-10 - R20.2) 06/17/2024 Paresthesia (ICD-10 - R20.2) 11/04/2024 Myalgia, other site (ICD-10 - M79.18) 01/06/2025 Myalgia, other site (ICD-10 - M79.18) 03/24/2025 Myalgia, other site (ICD-10 - M79.18) 03/24/2025 Paresthesia (ICD-10 - R20.2) 01/06/2025 Paresthesia (ICD-10 - R20.2) 11/04/2024 Paresthesia (ICD-10 - R20.2) 06/17/2024 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 We will monitor with in-office testing (rapid testing) today and review the results prior to dispensing prescription. All positive results will be sent for quantitative analysis to ensure accuracy and quantify amounts. Any expected positive results that return negative will also be sent for quantitative analysis. Any questionable read or any medication we cannot test for in the office confidently will be sent for quantitative analysis, as well. Patient has been made aware of this policy and agrees to abide by our urine testing policy. 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 We will monitor with in-office testing (rapid testing) today and review the results prior to dispensing prescription. All positive results will be sent for quantitative analysis to ensure accuracy and quantify amounts. Any expected positive results that return negative will also be sent for quantitative analysis. Any questionable read or any medication we cannot test for in the office confidently will be sent for quantitative analysis, as well. Patient has been made aware of this policy and agrees to abide by our urine testing policy. 01/06/2025 custodial (current) use of opiate analgesic (ICD-10 - Z79.891) RECOMMEND URINE TESTING TODAY Urine drug screening will be performed today to monitor compliance with opioid therapy or to serve as a baseline screen for a patient who may be a candidate for opioid therapy in the future, pending UDS results. We will monitor with in-office testing (rapid testing) today and review the results prior to dispensing prescription. All positive results will be sent for quantitative analysis to ensure accuracy and quantify amounts. Any expected positive results that return negative will also be sent for quantitative analysis. Any questionable read or any medication we cannot test for in the office confidently will be sent for quantitative analysis, as well. Patient has been made aware of this policy and agrees to abide by our urine testing policy. 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 Gifford. Dr. Balta Pedraza, personally performed the services described in this documentation, as scribed by Mary Francis, and it is both accurate and complete. Total time spent caring for the patient today was greater than 25 minutes. This includes time spent before the visit reviewing the chart, time spent during the visit, and time spent after the visit on documentation 08/26/2024 Mary Michelle am scribing for Dr. Gifford. Dr. Balta Pedraza, personally performed the services described in this documentation, as scribed by Mary Francis, and it is both accurate and complete. 11/04/2024 Other Mary Pedraza, am scribing for Dr. Gifford. Milo, Dr. Gifford, personally performed the services described in this documentation, as scribed by Mary Francis, and it is both accurate and complete. 01/06/2025 Other Mary Pedraza am scribing for Dr. Gifford. Dr. Balta Pedraza, personally performed the services described in this documentation, as scribed by Mary Francis, and it is both accurate and complete. 03/24/2025 Other Cher Pedraza am scribing for Dr. Sharmila Anderson . Sharmila Pedraza , personally performed the services described in this documentation, as scribed by Cher Aguero, and it is both accurate and complete. Plan Of Treatment Next Appt Details Provider Name:Sharmila Devine, 06/23/2025 08:00:00 AM, [address] [place], [address], Insurance Providers Payer Name Payer Address Payer Phone Subscriber Number Group Number Insured Name Patient Relationship to Insured Coverage Start Date Coverage End Date [facility] [place] [place] [address] [place] [address] [id number] Gale Meredith Self - patient is the insured 0 Medical (General) History Medical History History ICD Code Thyroid disease migraine headaches Surgical History Surgery Date(Month/Year) appendectomy back surgery Hospitalization History Reason Date(Month/Year) See Surgical Hx
--- OUTSIDE RECORDS SUMMARY | 2025-04-07 13:25 | XMS_ITS | Clinical Summary ---
Author Organization [facility] Address [address] [address] Care Team Providers Care Center Machine Set Up Operator Name Role Phone Valentino Alatorre Primary Care Provider [phone] Allergies Active Allergy Reactions Criticality Noted Date Comments Duloxetine Other (See Comments) High 11/20/2013 Excessive sleep Erythromycin Nausea and Vomiting High 11/20/2013 Excessive n/v Sulfamethoxazole-Trimeth oprim Rash Low 09/27/2015 Medications Levonorgestrel (MIRENA) 20 mcg/24 hr (5 years) IUDIndications:Enco unter for IUD insertion Use as directed.. 1 Device 0 6 05/08/20 26 Active levothyroxine 50 mcg tablet Take 1 Tablet (50 mcg) by mouth daily in the morning. 90 Tablet 1 1 Active cyclobenzaprine (FLEXERIL) 10 mg tabletIndications:D egeneration of lumbar intervertebral disc with acute herniation TAKE 2 TABLETS DAILY AT BEDTIME 180 Tablet 3 1 Active diclofenac sodium (VOLTAREN) 75 mg Tablet, Delayed Release (E.C.) TAKE 1 TABLET TWICE A DAY 50 Tablet 13 1 Active traMADoL (ULTRAM) 50 mg tabletIndications:D egeneration of lumbar intervertebral disc with acute herniation TAKE 1 TABLET THREE TIMES A DAY 270 Tablet 1 1 Active Mometasone (ELOCON) 0.1 % Solution Apply 2 mL to affected area 2 times daily. For scalp psoriasis. 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 L5 removed [...] lar Relation Name Status Comments Father Kingston Jon Alive Mother Mother Alive Paternal Grandfather Kingston Licea Social History Tobacco Use Types Packs/Day Years Used Date Smoking Tobacco: Never Smokeless Tobacco: Never Tobacco Cessation:Counseling Given: No Comments:Never Alcohol Use Standard Drinks/Week Comments No 0 (1 standard drink = 0.6 oz pur e alcohol) Comments No Sex and Gender Information Value Date Recorded Sex Assigned at Not on file Legal Sex Female 11:31 AM CDT Gender Identity Not on file Sexual Orientation Not on file Last Filed Vital Signs Vital Sign Reading Time Taken Comments Blood Pressure 124/80 11/10/2020 11:44 AM CDT Pulse 122 09/20/2020 8:11 AM INTERNET SALES REPRESENTATIVE Temperature 36 C (96.8 F) 09/20/2020 8:11 AM INTERNET SALES REPRESENTATIVE Respiratory Rate 15 09/20/2020 8:11 AM INTERNET SALES REPRESENTATIVE Oxygen Saturation 98% 09/20/2020 8:11 AM INTERNET SALES REPRESENTATIVE Inhaled Oxygen Concentration - - Weight 95.4 kg (210 lb 6.4 oz) 11/10/2020 11:44 AM CDT Height 165.1 cm (5' 5 ) 11/10/2020 11:44 AM CDT Body Mass Index 35.01 11/10/2020 11:44 AM CDT Plan of Treatment Health Maintenance Due Date Last Done Comments DTAP/TDAP/TD VACCINES (1 - Tdap) 1998 HEPATITIS B VACCINES (1 of 3 - 19+ 3-dose series) 1998 HPV VACCINES (1 - 3-dose SCD M series) 2006 BREAST CANCER SCREENING 11/10/2021 11/10/2020 PAP SMEAR 11/11/2023 11/10/2020, 01/28, 12/11/2013 Preventative Visit- Commercial 07/30/2024 0 03/30/2022, 11/10/2020, 04/26/2018, Additional history exists COLORECTAL SCREENING 2024 Colorectal Cancer Screening 2024 FIT-DNA Q 3 years 2024 FIT/FOBT Q 1 year 2024 Flex Sig/CT Colonography Q 5 years 2024 INFLUENZA VACCINE (#1) 2025 , 04/26/2018, 05/12/2014 CERVICAL CANCER SCREENING 11/10/2025 HPV/Cotest (21-29) 11/10/2025 11/10/2020, 02/23/2016 HPV/Cotest (30-65) 11/10/2025 11/10/2020, 02/23/2016 Procedures Procedure Name Priority Date/Time Associated Diagnosis Comments CERV/VAG CYTO SCREEN PAP W/HPV Routine 11/10/2020 12:42 PM CDT Screening for cervical cancer MAMMO 3D ELDON SCREEN BILAT W OR WO CAD Routine 11/10/2020 9:57 AM CDT Screening mammogram, encounter for from Last 3 Months or Most Recently Relevant to Health Maintenance Results * CERV/VAG CYTO SCREEN PAP W/HPV (11/10/2020 12:42 PM CDT) CLINICAL INFORMATION Information not provided 11/16/2020 4:15 PM CDT [facility] LAST MENSTRUAL PERIOD INFORMATION NOT PROVIDED 11/16/2020 4:15 PM CDT [facility] PREV PAP: INFORMATION NOT PROVIDED 11/16/2020 4:15 PM CDT [facility] PREV BX: INFORMATION NOT PROVIDED 11/16/2020 4:15 PM CDT [facility] SOURCE Endocervix 11/16/2020 4:15 PM CDT [facility] [place]: SEE COMMENT 11/16/2020 4:15 PM CDT [facility] [place] Comment: Satisfactory for evaluation. Endocervical/transformation zone component present. Age and/or menstrual status not provided PAP INTERP Negative for intraepithelial lesion or malignancy. 11/16/2020 4:15 PM CDT [facility] [place] This Pap test has been evaluated with computer assisted technology. 11/16/2020 4:15 PM CDT [facility] [place] QUALITY IMPROVEMENT MANAGER: SEE COMMENT 2020 4:15 PM CDT [facility] [place] Comment: MXL, CT(ASCP) CT screening location: [place] [address] [place] [address] EXPLANATORY NOTE SEE COMMENT 4:15 PM CDT [facility] [place] Comment: EXPLANATORY NOTE: The Pap is a [...] Detected Not Detected 11/16/2020 4:15 PM CDT [facility] [place]: Methodology: Wall Worker-Mediated Amplification This assay detects E6/E7 viral messenger RNA (mRNA) from 14 high-risk HPV types (16,18,31,33,35,39,45,51,52,56,58,59,66,68). The analytical performance characteristics of this assay have been determined by [employer]. The modifications have not been cleared or approved by the FDA. This assay has been validated pursuant to the CLIA regulations and is used for clinical purposes. For additional information, please refer to http://education.Wee Web.Waffle/faq/NAY057h0 (This link if provided for information/ educational purposes only.) Genital SWAB OF ENDOCERVIX / Unknown Collection / Unknown 11/10/2020 12:42 PM CDT 11/11/2020 1:05 PM CDT Narrative [facility] [place] 11/16/2020 4:15 PM CDT Performing Organization Information: Site ID: [id number] Name: [facility] Address: [address] [place] [address] Director: Kingston Luna D.O., MPH Site ID: [id number] [facility] Address: [address] [place] [address] Director: Estefany Matta Lakesha Ambrosio DO PATHOLOGY/CYTOLOGY ORDERABL ES Final Result [facility] * MAMMO SCRN BILAT 3D ELDON W OR WO CAD (11/10/2020 9:57 AM CDT) Anatomical Region Laterality Modality Breast Bilateral Mammography Narrative 11/11/2020 2:20 PM CDT Bilateral Digital Mammogram with CAD [...] Most Recently Relevant to Health Maintenance Insurance [facility] Advance Directives For more information, please contact: [phone] Documents on File Type Date Recorded Patient Golf Teacher Expl anation Advance Directive Living Will 12/11/2013 info given Care Teams Center Machine Set Up Operator Relationship Specialty Start Date End Date Valentino Alatorre DO [address] [place] [address] PCP - General Family Practice 10/08/20
--- NOTE | 2025-04-07 13:54 | ED_ITS ---
HPI - Headache General: Chief Complaint: Headache Stated Complaint: Headache since Sunday Time Seen by Provider: 04/07/25 13:30 History of Present Illness: 44-year-old female presents to the emerg ency room complaining of a headache that began 4 days ago. She usually takes rimegepant for this she did take some at home but did not really have any improvement she tried a dose again this morning with no results. She localizes the pain to the left frontal region where she typically gets her headaches. She states usually the oral triptan she uses at home will manage these. She is also on topiramate. She has seen neurology for intractable headache in the past. Patient describes these as cluster headaches. Reviewing neurologist notes that she has not formally been diagnosed as a true cluster headache she refers to her intractable migraines as a cluster headache. She has been very nauseated with these she has also had photophobia and photophobia. Associated symptoms: Deny chest pain, fever(s) or rash Related Data Home Medications ?Medication ?Instructions ?Recorded ?Confirmed naloxone 4 mg/actuation nasal spray 1 spray intranasal ONCE PRN 07/19/22 03/23/25 overdose levonorgestrel (Mirena) 1 device intrauterine .MELLY NUOUS 11/06/22 03/23/25 hydrocodone 5 mg-acetaminophen 325 1 tab PO BID PRN 03/23/25 mg tablet Previous Rx's ?Medication ?Instructions ?Recorded ondansetron HCl 4 mg tablet 4 mg PO Q8H PRN nausea and 01/04/24 vomiting #30 tabs cholecalciferol (vitamin D3) 1,250 50,000 unit PO .sunita kingy #14 caps 12/02/24 mcg (50,000 unit) capsule rimegepant 75 mg disintegrating 75 mg PO ONCE PRN migr page 12/02/24 tablet (Nurtec ODT) headache #14 tabs levothyroxine 75 mcg capsule 75 mcg PO DAILY #90 caps 12/31/24 mometasone 0.1 % topical solution 2 ml topical BID PRN Rash #60 mL 12/31/24 topiramate 100 mg tablet See Rx Instructions .Route 0 01/26/25 .COMPLEX #60 tabs gabapentin 800 mg tablet See Rx Instructions .Route 0 03/09/25 .COMPLEX #180 tabs hydroxyzine HCl 25 mg tablet 25 mg PO BID PRN itching #20 tabs 03/23/25 tizanidine 4 mg capsule 4 mg PO Q8H PRN muscle spast icity 03/23/25 #90 caps promethazine 25 mg tablet 25 mg PO Q6H PRN nausea and 04/07/25 vomiting #20 tabs Allergies Allergy/AdvReac Type Severity Reaction Status Date / Time sulfamethoxazole (From Allergy ALGY-Rash Verified 03/23/25 13:54 Bactrim) trimethoprim (From Bactrim) Allergy ALGY-Rash Verified 03/23/25 13:54 Review of Systems Const: Denies: fever(s) or chills Card: Denies: chest pain Resp: Denies: dyspnea GI: Denies: abdominal pain : Denies: dysuria, urinary frequency or urinary urgency Musc: Denies: neck pain or back pain Skin/Breast: Denies: rash PFSH ED PFSH: Medical History Nausea Migraine headache with aura Hypothyroidism Chronic migraine with aura Raynaud's disease Surgical History Hx of spinal surgery History of back surgery 2007, L5 herniated disc repair History of appendectomy 1990 Family History Mother Cancer kidney Anesthesia complication high tolerance Grandfather Cancer Maternal--lung CAD (coronary artery disease) Grandfather No problems noted. Grandmother Cancer Maternal--kidney Father Menieres disease Denies family history of Diabetes Clotting disorder Dementia Hyperlipidemia Psychiatric illness Chronic kidney disease (CKD) Bleeding disorder Lung disease Hypertension Stroke Social History Smoking and tobacco/nicotine status: never used tobacco/nicotine Second hand smoke exposure: Yes Alcohol intake: never Substance/Drug Use: never Lives independently: Yes Marital status: Number of children: 2 Current occupation: Childrens division/social science teacher Female Reproductive History: Para: 2 Physical Exam Const: GENERAL APPEARANCE: cooperative ORIENTATION/CONSCIOUSNESS: Yes awake, Yes oriented to person, Yes oriented to place and Yes oriented to time HENMT: COMMON NORMALS: normocephalic, atraumatic and hearing grossly normal bilaterally HEAD & SCALP: normocephalic and atraumatic Resp: COMMON NORMALS: normal respiratory effort, No retractions, No use of accessory muscles and clear to auscultation bilaterally AUSCULTATION: clear to auscultation bilaterally Cardio: COMMON NORMALS: regular rate, regular rhythm and No murmurs present (Cardio) RATE: regular rate RHYTHM: regular rhythm GI: COMMON NORMALS: Soft to palpation and No hepatosplenomegaly present AUSCULTATION: Yes normoactive bowel sounds PALPATION: Yes Soft to palpation, No Tenderness to palpation present (GI), No Guarding due to palpation present (GI) and Yes No hepatosplenomegaly present Extremity: COMMON NORMALS: normal to inspection, capillary refill normal, no clubbing, cyanosis or edema, no calf tenderness and no pedal edema Neuro: SENSORIUM/ORIENTATION: Yes oriented to person, Yes oriented to place and Yes oriented to time Skin: COMMON NORMALS: no rashes or lesions noted GENERAL SKIN EXAM: no rashes or lesions noted Course Vital Signs: Vital signs: Vital Signs Temperature 98.2 F 04/07/25 13:24 Pulse Rate 82 04/07/25 13:24 Respiratory Rate 16 04/07/25 13:24 Blood Pressure 123/77 04/07/25 13:24 Pulse Oximetry 98 04/07/25 13:24 Oxygen Delivery Me thod Room Air 04/07/25 13:24 MDM - Headache Medical Decision Making Patient had significant improvement of the THC protocol along with valproic acid. She states her headache is down to a 3-4 out of 10 she says much improved when she arrived we offered her 1 more round of DHE since she has she would prefer to forego that and just go home at this point. Discharge patient home can she can continue to use the rimegepant as previously prescribed she will wait at least 6 hours before the next dose. She also can use promethazine as needed. Follow-up with the neurologist if headaches continue to cause difficulty she may need to review and entertain other treatment options. Medical Records I reviewed the patient's medical records. No radiology studies performed this visit Discharge Plan Discharge Patient Disposition: Home Clinical Impression: Chronic migraine with aura Condition: Stable Prescriptions: New promethazine 25 mg tablet 25 mg PO Q6H PRN (Reason: nausea and vomiting) Qty: 20 0RF No Action naloxone 4 mg/actuation spray,non-aerosol 1 spray intranasal ONCE PRN (Reason: overdose) Rx Instructions: spray 1 dose into ONE nostril; alternate nostrils w each dose until help arrives hydrocodone-acetaminophen 5-325 mg tablet 1 tab PO BID PRN tizanidine 4 mg capsule 4 mg PO Q8H PRN (Reason: muscle spasticity) Qty: 90 1RF hydroxyzine HCl 25 mg tablet 25 mg PO BID PRN (Reason: itching) Qty: 20 1RF Mirena 20 mcg/24 hours (8 yrs) 52 mg intrauterine device 1 device intrauterine .CONTINUOUS Nurtec ODT 75 mg tablet,disintegrating 75 mg PO ONCE PRN (Reason: migraine headache) Qty: 14 5RF cholecalciferol (vitamin D3) 1,250 mcg (50,000 unit) capsule 50,000 unit PO .weekly Qty: 14 3RF Rx Instructions: Take one tablet weekly ondansetron HCl 4 mg tablet 4 mg PO Q8H PRN (Reason: nausea and vomiting) Qty: 30 0RF mometasone 0.1 % solution 2 ml topical BID PRN (Reason: Rash) Qty: 60 1RF levothyroxine 75 mcg capsule 75 mcg PO DAILY Qty: 90 1RF topiramate 100 mg tablet See Rx Instructions .ROUTE .COMPLEX Qty: 60 10RF Dose Instruction: Take 1 tablet by mouth twice daily Rx Instructions: Take 1 tablet by mouth twice daily gabapentin 800 mg tablet See Rx Instructions .ROUTE .COMPLEX Qty: 180 0RF Dose Instruction: Take 1 tablet by mouth twice daily Rx Instructions: Take 1 tablet by mouth twice daily Discharge Orders: Discharge ED (Routine); Ordered 04/07/25 Ordered By: Ken Savage Referrals: Suraj Harris MD [Primary Care Provider, Family Practice] Discharge Diet: Usual diet Discharge Activity: Increase activity as tolerated Patient Instructions: Migraine Headache (ED), Opioid Safety, Pain Management, Patient Portal & Lisbeth Instructions Activity Restrictions/Additional Instructions: Thank you for choosing [facility] for your healthcare needs today. It is very important that you follow up as instructed or that you return to the Emergency Department should you have concerns or if your condition changes or worsens in any way. Emergency department visits are focused on emergent conditions, in some cases you may require further evaluation on an outpatient basis. You were seen in the emergency room with complaint of chronic migraine. You are treated with DHE and valproic acid which you reported improved your symptoms. Discharge you home you can use the rimegepant as needed along with promethazine as needed. If your headaches continue to give you difficulty follow-up with your neurologist to see what other treatment options may be available (Please note that included in your discharge packet is information concerning opioid safety and pain management. This information is given to all patients were discharged from the ER regardless of their discharge diagnosis or the medicines they usually take or are prescribed.) Print Language: Macedonian Coding Level of Care Code ED Healthcare Interpreter for Betina Coronado
[2025-04-07] MEDS: ondansetron 2 mg/ML SDV 2 mL 4 MG IVP (15:01)
[2025-04-07] MEDS: diphenhydrAMINE 50 mg/mL SDV 1mL 25 MG IVP (15:03)
[2025-04-07 16:26] VITALS: BP 115/87; PULSE 65; O2SAT 97
== END 2025-04-07 16:27 | disposition home or self-care (01) ==
PROVIDERS: Emergency Provider Family Medicine; PCP Family Medicine
DX: G43.E09 Chronic migraine with aura, not intractable, without status migrainosus (principal)
CPT/HCPCS: 96365; 96375; 96376; 99284; J1110; J1200; J1885; J2405; J3490; J7030